=== PATIENT | female | born 1945 | race Caucasian/White ===

== ENCOUNTER → 2016-11-14 | Outpatient (CLI) | payer BC ==
[~2016-11-14] MED LIST: ASPEC81 PO; CLX/20 PO; LEVE500T PO; PROB1TAB16 PO; RXC5 PO
--- NOTE | 2016-11-14 14:13 | DIAGNOSTIC IMAGING REPORT ---
CAROTID ARTERY ULTRASOUND CLINICAL HISTORY: AMAUROSIS FUGAX COMPARISON STUDY: None. TECHNIQUE: Real-time, grayscale, and color Doppler sonography of the carotid and vertebral arteries was performed. Images were viewed in the transverse and longitudinal planes. FINDINGS: There is mild atherosclerotic plaque. Velocity measurements are listed below. COMMON CAROTID PEAK SYSTOLIC VELOCITY (CM/S): RIGHT 74 LEFT 84 ICA PEAK SYSTOLIC VELOCITY (CM/S): RIGHT 70 LEFT 77 The systolic ratios between the internal to common carotid arteries are normal. Antegrade flow is seen in the vertebral arteries. The external carotid arteries are patent. Blood pressure in the right arm measured 167/73. Blood pressure in the left arm measured 165/76. IMPRESSION: 1. No evidence of a hemodynamically significant stenosis. 2. Mild atherosclerotic plaque within the bilateral common carotid and internal carotid arteries. Electronically signed by: Mp Prather M.D. 11/14/2016 2:12 PM Dictated Date/Time: 11/14/2016 2:10 PM
== END | disposition home or self-care (01) ==
LOC: C.ULTR 13:05
PROVIDERS: ATTEND Psychiatry & Neurology Neurology
DX: G45.3 Amaurosis fugax (principal); G40.909 Epilepsy, unspecified, not intractable, without status epilepticus

== ENCOUNTER → 2016-11-14 | Outpatient (CLI) | payer BC ==
--- NOTE | 2016-11-14 15:35 | DIAGNOSTIC IMAGING REPORT ---
TWO VIEW CHEST AND RIGHT-SIDED RIB SERIES CLINICAL HISTORY: Atypical chest pain. Right-sided chest wall pain. FINDINGS: PA and lateral chest radiographs with 5 additional views may right-sided rib series are compared to study dated 05/02/2015 and rib series dated 05/03/2015. The heart is enlarged and there is atherosclerotic calcification of the thoracic aorta. The pulmonary vasculature is noncongested. Chronic interstitial thickening is unchanged. No airspace consolidation or pleural effusion is identified. Apical scarring is observed. There is no pneumothorax. The skeletal structures are osteopenic. There are age indeterminant but suspected acute minimally depressed right 4th through 7th anterolateral rib fractures. These are new from the 05/03/2015 examination. A mild and age indeterminant compression deformity is noted in the midthoracic spine. The remainder of the bony thorax appears intact. Degenerative change and hyperkyphosis are noted in the thoracic spine. IMPRESSION: 1. Cardiomegaly with no acute cardiopulmonary abnormality. 2. Age indeterminant but suspected acute and minimally depressed right 4th through 7th anterolateral rib fractures as above. Correlate for point tenderness at this site. 3. There is no pneumothorax Electronically signed by: Jeff Villalobos M.D. 11/14/2016 3:34 PM Dictated Date/Time: 11/14/2016 3:28 PM
== END | disposition home or self-care (01) ==
LOC: C.RADBC 14:34
PROVIDERS: ATTEND Family Medicine
DX: G40.909 Epilepsy, unspecified, not intractable, without status epilepticus (principal)

== ENCOUNTER → 2017-04-18 | Outpatient (CLI) | payer BC ==
--- NOTE | 2017-04-18 14:46 | DIAGNOSTIC IMAGING REPORT ---
C-SPINE ROUTINE 4 OR 5 VIEWS CLINICAL HISTORY: Neck pain following recent fall. COMPARISON STUDY: Cervical spine CT May 02, 2015. FINDINGS: Alignment of the cervical spine is anatomic. No acute fracture is identified. Arthritis at the C1- C2 articulation is noted. Multilevel bony neural foraminal stenosis is present. IMPRESSION: 1. No acute cervical spine fracture or subluxation. 2. Mild to moderate multilevel degenerative disc disease and facet arthrosis of the cervical spine. Electronically signed by: Mp Prather M.D. 04/18/2017 2:44 PM Dictated Date/Time: 04/18/2017 2:43 PM
--- NOTE | 2017-04-18 14:47 | DIAGNOSTIC IMAGING REPORT ---
LEFT SHOULDER MIN 2 VIEWS ROUTINE CLINICAL HISTORY: LEFT SHOULDER PAIN AFTER SEIZURE COMPARISON: None FINDINGS: Alignment of the left acromioclavicular and glenohumeral joints is anatomic. There is no acute fracture. Mild arthritis of the left acromioclavicular joint is noted. IMPRESSION: 1. No acute fracture or dislocation of the left shoulder. 2. Mild osteoarthritis of the left acromioclavicular joint. Electronically signed by: Mp Prather M.D. 04/18/2017 2:46 PM Dictated Date/Time: 04/18/2017 2:45 PM
--- NOTE | 2017-04-18 14:49 | DIAGNOSTIC IMAGING REPORT ---
L-SPINE MIN 4 VIEWS ROUTINE CLINICAL HISTORY: Low back pain. Recent fall. COMPARISON: None FINDINGS: There is slight retrolisthesis of L1 on L2. There is mild loss of height of the superior plate of L1. This is probably chronic. There is marked disc space narrowing with vacuum disc phenomenon at L5-S1. No acute lumbar spine fracture is identified. Several old right-sided rib fractures are noted. IMPRESSION: 1. Mild loss of height of the superior endplate of L1. Although age indeterminate, this is likely chronic. 2. Moderate degenerative disc disease at L5-S1. Otherwise, mild multilevel degenerative changes of the lumbar spine. Electronically signed by: Mp Prather M.D. 04/18/2017 2:47 PM Dictated Date/Time: 04/18/2017 2:46 PM
== END | disposition home or self-care (01) ==
LOC: C.RAD 13:56
PROVIDERS: ATTEND Family Medicine
DX: M54.2 Cervicalgia (principal); M54.5 Low back pain; M25.512 Pain in left shoulder

== ENCOUNTER → 2017-07-16 | Outpatient (CLI) | payer BC ==
[~2017-07-16] MED LIST changes: +GADAVIST IV PRN
--- NOTE | 2017-07-16 15:17 | DIAGNOSTIC IMAGING REPORT ---
Brain MRI WITH AND WITHOUT CONTRAST HISTORY: Seizures.. R56.9 TECHNIQUE: Multiplanar multisequence MRI of the brain was performed both before and after the intravenous administration of contrast. COMPARISON STUDY: Head CT 05/02/2015. FINDINGS: There is no mass, hematoma, midline shift, or acute infarct. The paranasal sinuses are clear. The mastoid air cells are clear. The ventricles and sulci demonstrate mild age-related involutional changes. Scattered foci of T2 hyperintensity seen within the periventricular and subcortical white matter are nonspecific but suggestive of mild microvascular ischemic changes. The major vascular flow voids at the skull base are well-maintained. No abnormal enhancement. IMPRESSION: No acute intracranial abnormality. Scattered foci of T2 hyperintensity seen within the periventricular and subcortical white matter are nonspecific but favor microvascular ischemic change. Electronically signed by: David Rico M.D. 07/16/2017 3:16 PM Dictated Date/Time: 07/16/2017 3:08 PM
== END | disposition home or self-care (01) ==
PROVIDERS: ATTEND Psychiatry & Neurology Neurology
DX: R56.9 Unspecified convulsions (principal)

== ENCOUNTER 2024-12-28 18:44 | Observation (INO) ==
[2024-12-28] MEDS: SENNA 8.6 MG TAB PO STA (21:57)
[2024-12-28] MEDS: ACETAMINOPHEN 500 MG TAB PO STA (21:57)
--- NOTE | 2024-12-28 22:29 | XRay Report ---
Exam(s): XR RIGHT WRIST, 3+ views EXAM: XR Right Wrist Complete, 3 or More Views CLINICAL HISTORY: Reason for exam: right wrist injury. TECHNIQUE: Frontal, lateral and oblique views of the right wrist. COMPARISON: No relevant prior studies available. FINDINGS: Bones/joints: Acute impacted, mildly displaced intra-articular distal radius fracture with 60° dorsal angulation of the distal fragment. No visible ulnar fracture. No dislocation. Soft tissues: Soft tissue swelling. No radiopaque foreign body. IMPRESSION: Acute impacted, mildly displaced intra-articular distal radius fracture with 60° dorsal angulation of the distal fragment. Electronically signed by: Mila Benavides M.D. 12/28/24 22:28 PM
--- NOTE | 2024-12-28 22:47 | XRay Report ---
Exam(s): XR SHOULDER, 2+ views EXAM: XR Right Shoulder Complete, 2 or More Views CLINICAL HISTORY: Reason for exam: right shoulder injury. TECHNIQUE: Two or more views of the right shoulder. COMPARISON: No relevant prior studies available. FINDINGS: Bones/joints: Mild osteoarthritis of the acromioclavicular joint. No acute fracture or dislocation. Multiple old right rib fractures. Spondylosis in the thoracic spine. Soft tissues: Unremarkable. IMPRESSION: No acute findings in the right shoulder. Electronically signed by: Mial Benavides M.D. 12/28/24 22:46 PM
--- NOTE | 2024-12-28 22:48 | CT Scan Report ---
Exam(s): CT HEAD Without Contrast EXAM: CT Head Without Intravenous Contrast CLINICAL HISTORY: Reason for exam: head injury. TECHNIQUE: Axial computed tomography images of the head/brain without intravenous contrast. CTDI is 39.02 mGy and DLP is 624.41 mGy-cm. Automated exposure control was utilized for the study. A dose lowering technique was utilized adhering to the principles of ALARA. COMPARISON: 06/05/24 FINDINGS: Brain: Age-related parenchymal volume loss. Mild to moderate chronic small vessel ischemic change. Landeros-white matter differentiation maintained. No hemorrhage, mass effect, parenchymal edema, or midline shift. Ventricles: No hydrocephalus. Bones/joints: No acute fracture. Soft tissues: Unremarkable. Vasculature: Intracranial atherosclerosis. Sinuses: Unremarkable as visualized. Mastoid air cells: No significant mastoid effusion. IMPRESSION: No acute intracranial process. Electronically signed by: Mila Benavides M.D. 12/28/24 22:47 PM
--- NOTE | 2024-12-28 22:57 | CT Scan Report ---
Exam(s): CT C SPINE EXAM: CT Cervical Spine Without Intravenous Contrast CLINICAL HISTORY: Reason for exam: head injury. TECHNIQUE: Axial computed tomography images of the cervical spine without intravenous contrast. CTDI is 25.68 mGy and DLP is 459.38 mGy-cm. Automated exposure control was utilized for the study. A dose lowering technique was utilized adhering to the principles of ALARA. COMPARISON: 05/27/23 FINDINGS: Vertebrae: Osteopenia. Fracture through the right lamina of C6 (sagittal 44), new from prior. There is 3 mm anterolisthesis of C6 on C7 which is new from prior exam and may reflect an acute posttraumatic finding. Stable chronic fracture through the left lamina of C5. Fracture through the right transverse process of C7 (coronal 68) which is new from prior but chronic in appearance. No additional fractures. Discs/spinal canal/neural foramina: Advanced degeneration at the atlantodental joint. Mild disc degeneration at multiple cervical levels. Multilevel bilateral facet joint degeneration. Mid and lower cervical uncovertebral joint degeneration. No significant central spinal canal stenosis. Soft tissues: Unremarkable. IMPRESSION: Fracture through the right lamina of C6 (sagittal 44), new from prior and possibly acute. There is 3 mm anterolisthesis of C6 on C7 which is new from prior exam and suggests a posttraumatic finding. Fracture through the right transverse process of C7, new from prior but chronic in appearance. Electronically signed by: Mila Benavides M.D. 12/28/24 22:56 PM
[2024-12-28] MEDS: LORazepam 2 MG/1 ML VIAL IM STA (23:34)
--- NOTE | 2024-12-29 00:49 | History & Physical Report ---
Date of Service December 29, 2024 Assessment & Plan (1) Ambulatory dysfunction: (2) Fracture of right wrist: (3) Cervical spine fracture: Plan 79-year-old female PMHx Alzheimer's dementia, seizure disorder, and chronic venous insufficiency presenting with for fall on the day prior to admission. ED evaluation reveals no leukocytosis, slightly decreased H/H at 11.7/33.8; CMP BUN 27, ratio 35.5, glucose 101; UA without infection; Cervical spine CT fracture through R lamina of C8 and 3 mm anterolisthesis of C6 on C7, fracture through right transverse process of C7; head CT with no acute findings; shoulder x-ray with no acute findings; wrist x-ray with acute impacted mildly d isplaced intra-articular distal radius fracture with 60 degree angulation (dorsal) of distal fragment. #Ambulatory dysfunction With recurrent falls and advanced Alzheimer's dementia. Patient's concern for patient's safety while at home, interested in discussing placement options. - PT/OT ordered, appreciate assistance - Case management consulted #Fall/R Radius fx/C spine fx's Patient with multiple falls occurring throughout the week, appears to just lose balance and fall over. Landed on L side ~ 5 days [employer], and R wrist on fall day of arrival. Suspect all mechanical in nature. - CBC without leukocytosis, slightly decreased H/H; CMP elevated BUN + ratio; UA w/o infection - Iron studies pending - CT head with no acute findings - C-spine CT with C8 fracture, anterior listhesis of C6 on C7, and C7 transverse process fracture - Will monitor on tele if patient allows to ensure no arrhythmias leading to falls - Case discussed with ED provider and ortho/spine sx providers- no surgical interventions at this time; encourage C spine collar as patient allows, R wrist splinted - Pain management - on [place] at home, may continue - Fall precautions #Agitation Some agitation at baseline, utilizes Haldol outpatient. Utilized Ativan in ED x 1. - UA w/o infection - Redirect as able + increase familiarity of setting + decrease restraints + remove lines if possible + promote good sleep (melatonin) Dispo: Admit, med/telemetry VTE prophylaxis: SCDs - consider chemical prophylaxis if prolong stay but DEFERRED at admission d/t falls This document was dictated utilizing [employer]. Please excuse any grammatical errors that may be secondary to use of this software. Admission and Anticipated Discharge Date Admission Date: 12/29/2024 History of Present Illness Chief Complaint: Fall Primary Care Provider: Carolyn Pemberton DO 79-year-old female PMHx Alzheimer's dementia, seizure disorder, and chronic venous insufficiency presenting with for fall on the day prior to admission. helps provide a history. Patient's states that he witnessed her leaning and then she fell to the ground landing on her right wrist. States that this is not the first fall and that she has had a previous fall earlier in the week making that a total of 2 falls over the past week. Approximately 5 days [employer] she had a fall landing on her left side which bruised her face. She is complaining of some right shoulder pain to the . She has not had no infectious symptoms. ED evaluation reveals no leukocytosis, slightly decreased H/H at 11.7/33.8; CMP BUN 27, ratio 35.5, glucose 101; UA without infection; Cervical spine CT fracture through R lamina of C8 and 3 mm anterolisthesis of C6 on C7, fracture through right transverse process of C7; head CT with no acute findings; shoulder x-ray with no acute findings; wrist x- ray with acute impacted mildly displaced intra-articular distal radius fracture with 60 degree angulation (dorsal) of distal fragment. Please see Dr. Garcia's attestation for adjustments/additions to treatment plan. Allergies Allergy/AdvReac Type Severity Reaction Status Date / Time raloxifene [From Evista] Allergy Intermediate swelling Verified 12/28/24 21:37 levetiracetam [From Keppra] AdvReac Intermediate depression Verified 12/28/24 21:37 morphine AdvReac Unknown Unknown Verified 12/28/24 21:37 Home Medications Medication Instructions Recorded Confirmed Type CBD oil 1 dose PO DIRECTED PRN NEEDED 10/13/24 12/28/24 History Abh Gel 1 dose PO Q4H PRN 12/28/24 12/28/24 History RESTLESSNESS/AGITATION haloperidol lactate 2 mg/mL oral 1 mg Q6 12/28/24 12/28/24 History concentrate hydrocodone 5 mg-acetaminophen 325 1 tab PO Q4H PRN Pain 12/28/24 12/28/24 History mg tablet sennosides 8.6 mg tablet (senna) 17.2 mg PO BID 12/28/24 12/28/24 History Past Med/Surg History Problem List Cervical spine fracture Ambulatory dysfunction Fracture of right wrist (Acute) Alzheimer dementia Chronic venous insufficiency Depression (Chronic) Seizure disorder (Chronic) Contusion of rib on right side (Acute) Seizures (Acute) Medical History Epilepsy Toe swelling Varicose veins of both lower extremities Vitamin D deficiency Thoracic compression fracture Poor balance Osteoporosis Memory change Intertrigo Hemorrhoids Colon polyps Arrhythmia Surgical History S/P tonsillectomy S/P hemorrhoidectomy S/P colonoscopy Family History Father Colon cancer Mother Myocardial infarction Hypertension Social History Smoking Status: Unknown if ever smoked Hx Alcohol Use: No Hx Substance Use: No Preferred Language: Vietnamese Communication Ability: Unable Pill Packer Required: No marital status: Current Living Situation: Spouse current occupational status: retired Feels Safe at Home: Yes Physical Activity Frequency: Does not Exercise Assistive Devices: Hospital Bed and Walker Review of Systems Review of Systems: All systems reviewed & are unremarkable except as noted in Subjective Physical Exam Physical Exam: General: No acute distress Skin: Warm and dry Head: Normocephalic, atraumatic Eyes: PERRL, conjunctivae clear, sclera non-icteric ENT: External ear and ear canal without swelling; nose atraumatic; good dentition, tongue normal appearance, pharynx normal Neck: Supple, no LAD Cardio: RRR, no M/G/R, S1 and S2 normal Resp: No respiratory distress, Lungs CTA in all lobes bilaterally, no wheezes, rales, or rhonchi Abdomen: Soft, symmetric, nontender; No masses or hepatosplenomegaly; Bowel sounds normoactive MSK: No deformities; pulses palpable and equal; no edema. Neuro: Awake, alert; Sensation intact bilaterally; CN grossly intact Psych: Appropriate mood and affect; good judgement and insight. Results & Data Results & Data Vital Signs (Past 12 Hours) Vital Signs Temp Pulse Pulse Resp BP BP Pulse Ox 12/28/24 20:58 84 12/28/24 19:10 36.6 C 73 19 161/85 H 98 12/28/24 19:10 36.6 C 73 20 161/85 H 97 O2 Del Method 12/28/24 20:58 12/28/24 19:10 Room Air 12/28/24 19:10 Room Air Diagnostic Findings Cervical Spine CT 12/28/24 19:54 Exam(s): CT C SPINE EXAM: CT Cervical Spine Without Intravenous Contrast CLINICAL HISTORY: Reason for exam: head injury. TECHNIQUE: Axial computed tomography images of the cervical spine without intravenous contrast. CTDI is 25.68 mGy and DLP is 459.38 mGy-cm. Automated exposure control was utilized for the study. A dose lowering technique was utilized adhering to the principles of ALARA. COMPARISON: 05/27/23 FINDINGS: Vertebrae: Osteopenia. Fracture through the right lamina of C6 (sagittal 44), new from prior. There is 3 mm anterolisthesis of C6 on C7 which is new from prior exam and may reflect an acute posttraumatic finding. Stable chronic fracture through the left lamina of C5. Fracture through the right transverse process of C7 (coronal 68) which is new from prior but chronic in appearance. No additional fractures. Discs/spinal canal/neural foramina: Advanced degeneration at the atlantodental joint. Mild disc degeneration at multiple cervical levels. Multilevel bilateral facet joint degeneration. Mid and lower cervical uncovertebral joint degeneration. No significant central spinal canal stenosis. Soft tissues: Unremarkable. IMPRESSION: Fracture through the right lamina of C6 (sagittal 44), new from prior and possibly acute. There is 3 mm anterolisthesis of C6 on C7 which is new from prior exam and suggests a posttraumatic finding. Fracture through the right transverse process of C7, new from prior but chronic in appearance. Electronically signed by: Mila Benavides M.D. 12/28/24 22:[address] 12/28/24 19:54 Exam(s): CT HEAD Without Contrast EXAM: CT Head Without Intravenous Contrast CLINICAL HISTORY: Reason for exam: head injury. TECHNIQUE: Axial computed tomography images of the head/brain without intravenous contrast. CTDI is 39.02 mGy and DLP is 624.41 mGy-cm. Automated exposure control was utilized for the study. A dose lowering technique was utilized adhering to the principles of ALARA. COMPARISON: 06/05/24 FINDINGS: Brain: Age-related parenchymal volume loss. Mild to moderate chronic small vessel ischemic change. Landeros-white matter differentiation maintained. No hemorrhage, mass effect, parenchymal edema, or midline shift. Ventricles: No hydrocephalus. Bones/joints: No acute fracture. Soft tissues: Unremarkable. Vasculature: Intracranial atherosclerosis. Sinuses: Unremarkable as visualized. Mastoid air cells: No significant mastoid effusion. IMPRESSION: No acute intracranial process. Electronically signed by: Mila Benavides M.D. 12/28/24 22:47 PM Shoulder X-Ray 12/28/24 19:54 Exam(s): XR SHOULDER, 2+ views EXAM: XR Right Shoulder Complete, 2 or More Views CLINICAL HISTORY: Reason for exam: right shoulder injury. TECHNIQUE: Two or more views of the right shoulder. COMPARISON: No relevant prior studies available. FINDINGS: Bones/joints: Mild osteoarthritis of the acromioclavicular joint. No acute fracture or dislocation. Multiple old right rib fractures. Spondylosis in the thoracic spine. Soft tissues: Unremarkable. IMPRESSION: No acute findings in the right shoulder. Electronically signed by: Mila Benavides M.D. 12/28/24 22:46 PM Wrist X-Ray 12/28/24 19:54 Exam(s): XR RIGHT WRIST, 3+ views EXAM: XR Right Wrist Complete, 3 or More Views CLINICAL HISTORY: Reason for exam: right wrist injury. TECHNIQUE: Frontal, lateral and oblique views of the right wrist. COMPARISON: No relevant prior studies available. FINDINGS: Bones/joints: Acute impacted, mildly displaced intra-articular distal radius fracture with 60° dorsal angulation of the distal fragment. No visible ulnar fracture. No dislocation. Soft tissues: Soft tissue swelling. No radiopaque foreign body. IMPRESSION: Acute impacted, mildly displaced intra-articular distal radius fracture with 60° dorsal angulation of the distal fragment. Electronically signed by: Mila Benavides M.D. 12/28/24 22:28 PM Medications Administered Sennosides 8.6 mg p.o. Lorazepam 1 mg IM Haloperidol 5 megs IM Acetaminophen 1g p.o. Supervising Physician Co-Signing Physician Notes I personally saw and examined the patient. I independently reviewed the labs, imaging, problem list, medication list, past medical history and family history. I verified all schmitt points and agree with Pelon Bahena PA-C with the following exceptions and/or additions: 79 year old presents to the ER with fall. Patient with dementia and no available family members at bedside for collateral history at time of assessment. O/E Alert but disorientated x3, HS RRR, no murmurs, Chest CTAB, right wrist in splint A/P #Fall/R Radius fx/C spine fx's - consult ortho, consult ortho spine (patient unable to tolerate cervical collar), PT/OT, likely need for placement PG Care Time/CCT Total # of Minutes Spent Total Time Spent with Patient: Total time spent is greater than 50% in coordination of care (as documented) at patient's floor/unit and/or counseling patient: Coding Level of Care Code 55482 INT INP/OBS CARE 3/75MIN Diagnoses Ambulatory dysfunction R26.2 Fracture of right wrist S62.101A Encounter type: initial encounter Fracture type: closed Cervical spine fracture S12.9XXA (2) Fracture of right wrist Encounter type: initial encounter Fracture type: closed Qualified Code(s): S62.101A - Fracture of unspecified carpal bone, right wrist, initial encounter for closed fracture
[2024-12-29] MEDS: HALOPERIDOL LACTATE 5 MG/ML 1 ML VIAL IM STA (01:29)
[2024-12-29] MEDS ORDERED: POLYETHYLENE (MIRALAX) 17 GM PACK PO PRN (01:41)
--- NOTE | 2024-12-29 01:46 | Emergency Department Note ---
ED Provider Note History of Present Illness Chief Complaint: Fall Stated Complaint: FALL, R WRIST DEFORMITY Time Seen by Provider: 12/28/24 19:46 Source: family Mode of arrival: ambulatory Limitations: other (Dementia) This patient is a 79-year-old female with past medical history of Alzheimer's dementia who presents accompanied by her for evaluation of a fall. He states that she fell this evening. She was walking and seemed to lose her balance and fell, injuring the right wrist. He does note that she had another fall about 5 days ago and at that time hit her face off of the door frame. She has some bruising around the left eye due to this. She does not take any anticoagulants. He states that since the first fall, she seems to have been moving the right arm less than usual. Home Medications Medication Instructions Recorded Confirmed Type CBD oil 1 dose PO DIRECTED PRN NEEDED 10/13/24 12/28/24 History Abh Gel 1 dose PO Q4H PRN 12/28/24 12/28/24 History RESTLESSNESS/AGITATION haloperidol lactate 2 mg/mL oral 1 mg Q6 12/28/24 12/28/24 History concentrate hydrocodone 5 mg-acetaminophen 325 1 tab PO Q4H PRN Pain 12/28/24 12/28/24 History mg tablet sennosides 8.6 mg tablet (senna) 17.2 mg PO BID 12/28/24 12/28/24 History Allergies Allergy/AdvReac Type Severity Reaction Status Date / Time raloxifene [From Evista] Allergy Intermediate swelling Verified 12/28/24 21:37 levetiracetam [From Keppra] AdvReac Intermediate depression Verified 12/28/24 21:37 morphine AdvReac Unknown Unknown Verified 12/28/24 21:37 Past Med/Surg History Problem List Cervical spine fracture Ambulatory dysfunction Fracture of right wrist (Acute) Alzheimer dementia Chronic venous insufficiency Depression (Chronic) Seizure disorder (Chronic) Contusion of rib on right side (Acute) Seizures (Acute) Medical History Epilepsy Toe swelling Varicose veins of both lower extremities Vitamin D deficiency Thoracic compression fracture Poor balance Osteoporosis Memory change Intertrigo Hemorrhoids Colon polyps Arrhythmia Surgical History S/P tonsillectomy S/P hemorrhoidectomy S/P colonoscopy Family History Father Colon cancer Mother Myocardial infarction Hypertension Social History Smoking Status: Unknown if ever smoked Hx Alcohol Use: Yes Alcohol type: wine Alcohol Intake Frequency Comment: daily Hx Substance Use: No Preferred Language: Arabic marital status: Current Living Situation: Spouse current occupational status: retired Feels Safe at Home: Yes Physical Activity Frequency: Does not Exercise Physical Exam Vital Signs Vital Signs - 24 hr 12/28/24 19:10 12/28/24 19:10 12/28/24 20:58 Temperature 36.6 C 36.6 C Temperature Source Oral Oral Pulse Rate 73 84 Pulse Rate [Left Finger] 73 Pulse Rhythm Regular Pulse Rhythm [Left Finger] Regular Pulse Strength Normal Pulse Strength [Left Finger] Normal Respiratory Rate 20 19 Respiratory Effort / Characteristics Non-Labored Spontaneous Non-Labored Spontaneous Respiratory Depth Normal Normal Respiratory Pattern Regular Regular Blood Pressure 161/85 H Blood Pressure [Left Arm] 161/85 H Blood Pressure Mean 110 Blood Pressure Mean [Left Arm] 110 Blood Pressure Position Lying Blood Pressure Position [Left Arm] Lying Pulse Oximetry 97 98 Oxygen Delivery Method Room Air Room Air Sepsis Recent Fever Within 48 Hours No Sepsis New/Unexplained Change in Mental Status No Sepsis Action Taken by Nursing No Action Required VITALS: Vitals are noted on the nurse's note and reviewed by myself. GENERAL: This is a 79-year-old female, in no acute distress. SKIN: The skin was without rashes, erythema, edema, or bruising. HEAD: Normocephalic atraumatic. EARS: External auditory canals clear, tympanic membranes pearly landeros without erythema or effusion bilaterally. EYES: Pupils equal round and reactive to light and accommodation. MOUTH: Mucous membranes moist. NECK: Supple without nuchal rigidity. Cervical spine is nontender. HEART: Regular rate and rhythm without murmurs gallops or rubs. LUNGS: Clear to auscultation bilaterally without wheezes, rales or rhonchi. ABDOMEN: Positive bowel sounds x 4. Soft, nontender. MUSCULOSKELETAL: Dorsal swelling/deformity of the right wrist, tenderness over the dorsal right wrist. NEURO: Patient was oriented to person only. Course Administered Medications Discontinued Medications Acetaminophen (Acetaminophen 500 Mg Tab) 1,000 mg PO NOW STA Stop: 12/28/24 21:43 Last Admin: 12/28/24 21:57 Dose: 1,000 mg Documented By: UDAY Haloperidol Lactate (Haloperidol Lactate 5 Mg/Ml 1 Ml Vial) 5 mg IM NOW STA Stop: 12/28/24 23:47 Last Admin: 12/29/24 01:29 Dose: 5 mg Documented By: KADIE Lorazepam (Lorazepam 2 Mg/1 Ml Vial) 1 mg IM NOW STA Stop: 12/28/24 23:23 Last Admin: 12/28/24 23:34 Dose: 1 mg Documented By: UDAY Sennosides (Senna 8.6 Mg Tab) 8.6 mg PO NOW STA Stop: 12/28/24 21:43 Last Admin: 12/28/24 21:57 Dose: 8.6 mg Documented By: UDAY Medical Decision Making Differential Diagnosis Fracture, subluxation, dislocation, contusion, ligamentous injury, neurovascular, compartment syndrome, rhabdomyolysis, as well as other pathologies. Imaging Data Attestation: I personally reviewed and interpreted this imaging study as fo llows: Radiologist's Impression: Cervical Spine CT 12/28/24 19:54 Exam(s): CT C SPINE EXAM: CT Cervical Spine Without Intravenous Contrast CLINICAL HISTORY: Reason for exam: head injury. TECHNIQUE: Axial computed tomography images of the cervical spine without intravenous contrast. CTDI is 25.68 mGy and DLP is 459.38 mGy-cm. Automated exposure control was utilized for the study. A dose lowering technique was utilized adhering to the principles of ALARA. COMPARISON: 05/27/23 FINDINGS: Vertebrae: Osteopenia. Fracture through the right lamina of C6 (sagittal 44), new from prior. There is 3 mm anterolisthesis of C6 on C7 which is new from prior exam and may reflect an acute posttraumatic finding. Stable chronic fracture through the left lamina of C5. Fracture through the right transverse process of C7 (coronal 68) which is new from prior but chronic in appearance. No additional fractures. Discs/spinal canal/neural foramina: Advanced degeneration at the atlantodental joint. Mild disc degeneration at multiple cervical levels. Multilevel bilateral facet joint degeneration. Mid and lower cervical uncovertebral joint degeneration. No significant central spinal canal stenosis. Soft tissues: Unremarkable. IMPRESSION: Fracture through the right lamina of C6 (sagittal 44), new from prior and possibly acute. There is 3 mm anterolisthesis of C6 on C7 which is new from prior exam and suggests a posttraumatic finding. Fracture through the right transverse process of C7, new from prior but chronic in appearance. Electronically signed by: Mila Benavides M.D. 12/28/24 22:[address] 12/28/24 19:54 Exam(s): CT HEAD Without Contrast EXAM: CT Head Without Intravenous Contrast CLINICAL HISTORY: Reason for exam: head injury. TECHNIQUE: Axial computed tomography images of the head/brain without intravenous contrast. CTDI is 39.02 mGy and DLP is 624.41 mGy-cm. Automated exposure control was utilized for the study. A dose lowering technique was utilized adhering to the principles of ALARA. COMPARISON: 06/05/24 FINDINGS: Brain: Age-related parenchymal volume loss. Mild to moderate chronic small vessel ischemic change. Landeros-white matter differentiation maintained. No hemorrhage, mass effect, parenchymal edema, or midline shift. Ventricles: No hydrocephalus. Bones/joints: No acute fracture. Soft tissues: Unremarkable. Vasculature: Intracranial atherosclerosis. Sinuses: Unremarkable as visualized. Mastoid air cells: No significant mastoid effusion. IMPRESSION: No acute intracranial process. Electronically signed by: Mila Benavides M.D. 12/28/24 22:47 PM Shoulder X-Ray 12/28/24 19:54 Exam(s): XR SHOULDER, 2+ views EXAM: XR Right Shoulder Complete, 2 or More Views CLINICAL HISTORY: Reason for exam: right shoulder injury. TECHNIQUE: Two or more views of the right shoulder. COMPARISON: No relevant prior studies available. FINDINGS: Bones/joints: Mild osteoarthritis of the acromioclavicular joint. No acute fracture or dislocation. Multiple old right rib fractures. Spondylosis in the thoracic spine. Soft tissues: Unremarkable. IMPRESSION: No acute findings in the right shoulder. Electronically signed by: Mila Benavides M.D. 12/28/24 22:46 PM Wrist X-Ray 12/28/24 19:54 Exam(s): XR RIGHT WRIST, 3+ views EXAM: XR Right Wrist Complete, 3 or More Views CLINICAL HISTORY: Reason for exam: right wrist injury. TECHNIQUE: Frontal, lateral and oblique views of the right wrist. COMPARISON: No relevant prior studies available. FINDINGS: Bones/joints: Acute impacted, mildly displaced intra-articular distal radius fracture with 60° dorsal angulation of the distal fragment. No visible ulnar fracture. No dislocation. Soft tissues: Soft tissue swelling. No radiopaque foreign body. IMPRESSION: Acute impacted, mildly displaced intra-articular distal radius fracture with 60° dorsal angulation of the distal fragment. Electronically signed by: Mila Benavides M.D. 12/28/24 22:28 PM MDM Narrative This patient is a 79-year-old female who presents to the emergency department for evaluation of 2 recent falls. Patient primarily complaining of pain in the right wrist. She does have a swelling/deformity there. X-rays obtained show an impacted mildly displaced distal radius fracture with some dorsal angulation of the distal fragment. I did speak with Dr. Porras of orthopedics regarding this and he did not feel that emergent reduction was warranted. Patient was placed in an Ortho-Glass splint and I was able to apply some pressure to help reduce the fracture during splinting. Given patient's recent fall and facial contusions, CT of the head and cervical spine were also performed. Patient was found to have fractures of the right lamina of C6 and right transverse process fracture of C7. Unclear whether these are new. There is some mild anterolisthesis of C6 on C7. I did speak with Dr. Rich regarding this and he states that we can attempt a cervical collar (patient took this off immediately) but no other emergent treatment is warranted. I do think patient would benefit from admission and possible placement in a nursing facility. Patient's was agreeable with this. [facility], who agreed to evaluate the patient for further care. Impression Fracture of right wrist Discharge Plan Visit Data Chief Complaint: Fall Stated Complaint: FALL, R WRIST DEFORMITY ED Provider: Jose Rafael [facility] ED Midlevel Provider: Cheri Beltran Discharge Problem: Fracture of right wrist Patient Disposition: Home - Self-Care Condition: Good Discharge Problem: Fracture of right wrist Qualifiers: Encounter type: initial encounter Fracture type: closed Qualified Code(s): S62.101A - Fracture of unspecified carpal bone, right wrist, initial encounter for closed fracture
[2024-12-29 02:12] LABS: Appearance Urine Clear (Clear); Bacteria Urine Automated None Seen (None Seen); Bilirubin Urine Negative (Negative); Blood Urine Trace (Negative); Cast Urine Automated 0-2 /lpf (0-2); Color Urine Yellow; Epithelial Cell Urine Auto 0-2 /hpf (0-2); Glucose Urine UA Negative (Negative); Ketones Urine Negative (Negative); Leukocyte Esterase Urine Negative (Negative); Nitrite Urine Negative (Negative); Protein Urine Negative (Negative); RBC Urine Automated 0-2 /hpf (0-2); Specific Gravity Urine 1.009 (1.000-1.030); Urobilinogen Urine Negative (Negative); WBC Urine Automated 0-5 /hpf (0-5); pH Urine 7.5 (4.5-7.5)
[2024-12-29 02:19] LABS: Basophils # (auto) 0.04 K/uL (0.00-0.20); Basophils % (auto) 0.4 %; Eosinophils # (auto) 0.02 K/uL (0.00-0.50); Eosinophils % (auto) 0.2 %; Hematocrit (blood only) 33.8 % (37.0-47.0); Hemoglobin 11.7 g/dl (12.0-16.0); Immature Granulocytes # (auto) 0.03 K/uL (0.01-0.20); Immature Granulocytes % (auto) 0.3 %; Lymphocytes # (auto) 1.82 K/uL (1.20-3.40); Lymphocytes % (auto) 19.5 %; Mean Corpuscular Hemoglobin 31.5 pg (25.0-34.0); Mean Corpuscular Hgb Conc 34.6 g/dL (32.0-36.0); Mean Corpuscular Volume 91.1 fL (80.0-100.0); Mean Platelet Volume 8.3 fL (9.4-12.4); Monocytes # (auto) 1.03 K/uL (0.11-0.59); Neutrophils # (auto) 6.39 K/uL (1.40-6.50); Neutrophils % (auto) 68.6 %; Platelet Count 314 K/uL (130-400); RDW Coefficient of Variation 14.9 % (11.5-14.5); RDW Standard Deviation 49.7 fL (36.4-46.3); Red Blood Count 3.71 M/uL (4.20-5.40); White Blood Count 9.33 K/ul (4.8-10.8)
[2024-12-29 02:28] LABS: Albumin Globulin Ratio 1.6 (0.9-2); Albumin Level 3.9 gm/dl (3.4-5.0); BUN Creatinine Ratio 35.5 (10-20); Bilirubin,Total 0.7 mg/dl (0.2-1.0); Calcium 9.1 mg/dl (8.6-10.3); Creatinine Clr Calc Pharmacy 56.1 ml/min; Globulin 2.4 gm/dl (2.5-4.0); Potassium 3.9 mmol/L (3.5-5.1); Total Protein 6.3 gm/dl (6.0-8.3)
[2024-12-29 04:04] LABS: Ferritin 109.5 ng/ml (8-388)
[2024-12-29 05:14] LABS: Folate (Folic Acid),Ser orPlas 16.49 ng/ml (>5.38)
[2024-12-29] MEDS: HALOPERIDOL ORAL SOLN 2 MG/ML PO SCH (06:14)
--- OUTSIDE RECORDS SUMMARY | 2024-12-29 08:12 | External Medical Summary | Summary of Care ---
Author Name Unknown Organization [facility] Address [address] [place] [facility] [place] [address] Phone [phone] Care Team Providers Care Flipping Machine Operator Name Role Phone Carolyn Pemberton Primary Care Provider Reason for Visit * Reason Onset Date Comments Order Request 12/20/2024 Encounter Details Date Type Department Care Team (Late st Contact Info) Description 12/20/2024 Telephone Rheumatology [facility] [address] [place] [address] [facility] [address] [facility] [address] Order Request Allergies Active Allergy Reactions Criticality Noted Date Comments Raloxifene Edema Other 2015 Raloxifene 07/09/2016 Levetiracetam 07/02/2022 Other reaction(s): depression Morphine 07/09/2016 Peanut-Containing Drug Products 02/10/2024 documented as of this encounter (statuses as of 12/20/2024) Medications citalopram (CELEXA) 20 MG Tablet Take 1 Tablet by mouth in the morning. 5 Active Cholecalciferol (VITAMIN D) 1000 UNIT Capsule Take 1 Capsule by mouth in the morning. Active Magnesium 400 MG Oral Capsule Take 1 Capsule by mouth in the morning. Active traMADol HCl 50 MG Oral Tablet (Ultram) 1 Tablet as needed. 4 Active Memantine HCl ER 28 MG Oral Capsule Extended Release 24 Hour (Namenda XR) Take 1 Capsule by mouth in the morning. Take with largest meal of the day. (Replaces immediate release memantine). 90 Capsule 1 4 Active lamoTRIgine ER 200 MG Oral Tablet Extended Release 24 Hour (LaMICtal XR) Take 2 tabs daily 180 Tablet 1 5 Active lamoTRIgine ER 50 MG Oral Tablet Extended Release 24 Hour (LaMICtal XR) Take one daily with 200 mg tabs 90 Tablet 1 5 Active documented as of this encounter (statuses as of 12/20/2024) Active Problems Problem Noted Date Diagnosed Date Senile osteoporosis 01/21/2023 Alzheimer's dementia 06/04/2022 Overview (02/10/2024): Per Neurology visit note Dr Christine Morgan 05/09/22 Per Neurology visit note Dr Christine Morgan 05/09/22 Per Neurology visit note Dr Christine Morgan 05/09/22 Compression fracture of body of thoracic vertebr a 04/15/2022 Overview (04/15/2022): multiple Anxiety 04/15/2022 Seizure disorder, complex pa rtial, without intractable epilepsy 07/09/2016 Convulsions documented as of this encounter (statuses as of 12/20/2024) Resolved Problems Problem Noted Date Diagnosed Date Resolved Date Seizures 04/15/2022 04/15/2022 documented as of this encounter (statuses as of 12/20/2024) Social History Tobacco Use Types Packs/Day Years Used Date Smoking Tobacco: Never Smokeless Tobacco: Never Alcohol Use Standard Drinks/Week Comments Yes 0 (1 standard drink = 0.6 oz pure alcohol) As of 11.14.2006, the last noted alcohol intake was 3 ounces. Utilities Answer Date Recorded Do you have trouble paying y our heating, water, or electric bill? (Adult - for ages 18 years and over) Not on file 03/15/2024 Is your family able to pay t he heat, water, or electric bill? (Household - for ages 0-17 years) Not on file 03/15/2024 Does your family have access to good internet? (Household - for ages 0-17 years) Not on file 03/15/2024 Social Connections Answer Date Recorded How often do you feel lonely or isolated from those around you? (Adult - for ages 18 years and over) Not on file 03/15/2024 Comments No Sex and Gender Information Value Date Recorded Sex Assigned at Not on file Legal Sex Female 5:15 AM EST Gender Identity Not on file Sexual Orientation Not on file documented as of this encounter Miscellaneous Notes * Telephone Encounter - Kiley Chong LPN - 12/20/2024 2:09 PM EDT Lab orders mailed to pt * Telephone Encounter - Pramod Jha MD - 12/20/2024 1:33 PM EDT Nurses - please print out lab slips and mail to patient documented in this encounter Plan of Treatment Upcoming Encounters Date Type Department Care Team (Late st Contact Info) Description 01/12/2025 1:00 PM EDT Office Visit Neurology [facility] [address] [place] [address] Sheila Trevizo MD [address] [facility] [place] [address] 02/15/2025 1:20 PM EDT Office Visit Rheumatology [facility] [address] [place] [phone] Pramod Jha MD [facility] [place] [address] Scheduled Orders Name Type Priority Associated Diagnoses Orde r Schedule CREATININE Lab Routine Senile osteoporosis Expected: 12/20/2024, Expires: 12/20/2025 CALCIUM Lab Routine Senile osteoporosis Expected: 12/20/2024, Expires: 12/20/2025 25-HYDROXY VITAMIN D Lab Routine Senile osteoporosis Expected: 12/20/2024, Expires: 12/20/2025 Health Maintenance Due Date Last Done Comments Depression Screening 1957 Hepatitis C Screening 1963 Zoster Vaccines (1 of 2) 1996 Pneumococcal Vaccine: 50+ Years (2 of 2 - PCV) 05/02/2016 05/02/2015 COVID-19 Vaccine (3 - 2023-2 5 season) 2024 11/23/2020, 11/02/2020 Influenza Vaccine (FLU shot) (#1) 2024 07/10/1998 DXA Scan 06/17/2026 06/17/2024, 10/25/2021, 10/30/2010 DTap/Tdap Vaccines (2 - Tdap) 05/27/2033 05/27/2023 VITAMIN D LEVEL ONCE IN A LIFETIME-USE SMARTSET# 20442 Completed 06/04/2022 HPV (Gardasil) Vaccine Aged Out No lo nger eligible based on patient's age to complete this topic Hepatitis B Vaccine Aged Out No longe r eligible based on patient's age to complete this topic MENINGOCOCCAL (MENACTRA/MENVEO) Aged Out No longer eligible b ased on patient's age to complete this topic Meningitis B Vaccine (Bexsero/Trumemba) Aged Out No longer eligible b ased on patient's age to complete this topic documented as of this encounter Medical Devices Not on filedocumented as of this encounter Visit Diagnoses Diagnosis Senile osteoporosis- Primary documented in this encounter Care Teams Flipping Machine Operator Relationship Specialty Start Date End Date Carolyn Pemberton DO [address] [place] [address], [place] [address] PCP - General Family Medicine 07/08/16 documented as of this encounter
--- OUTSIDE RECORDS SUMMARY | 2024-12-29 08:12 | External Medical Summary | Summary of Care ---
Author Name Unknown Organization [facility] [address] [facility] [address] Phone [phone] Care Team Providers Care Network Systems Integrator Name Role Phone iNlay Carolyn Rupa Primary Care Provider Encounter Details Date Type Department Care Team (Late st Contact Info) Description 12/27/2024 Orders Only PATIENT PORTAL DO NOT DELETE THIS DEPT USED BY [facility] [facility] [id number] Allergies Active Allergy Reactions Criticality Noted Date Comments Raloxifene Edema Other 2015 Raloxifene 07/09/2016 Levetiracetam 07/02/2022 Other reaction(s): depression Morphine 07/09/2016 Peanut-Containing Drug Products 02/10/2024 documented as of this encounter (statuses as of 12/27/2024) Medications citalopram (CELEXA) 20 MG Tablet Take [...] as of this encounter (statuses as of 12/27/2024) Active Problems Problem Noted Date Diagnosed Date [...] as of this encounter (statuses as of 12/27/2024) Resolved Problems Problem Noted Date Diagnosed Date Resolved Date Seizures 04/15/2022 04/15/2022 documented as of this encounter (statuses as of 12/27/2024) Social History Tobacco Use Types Packs/Day Years [...] on file documented as of this encounter Plan of Treatment Upcoming Encounters Date Type Department Care Team (Late st Contact Info) Description 01/12/2025 1:00 PM EDT Office Visit Neurology [facility] [address] [facility] [place] [address] Sheila Trevizo MD [address] [facility] [place] [address] 02/15/2025 1:20 PM EDT Office Visit Rheumatology [facility] [address] [place] [phone] Pramod Jha MD [address] [facility] [place] [address] Health Maintenance Due Date Last Done Comments [...] D LEVEL ONCE IN A LIFETIME-USE SMARTSET# 14100 Completed 06/04/2022 HPV (Gardasil) Vaccine Aged Out [...] Not on filedocumented as of this encounter Care Teams Network Systems Integrator Relationship Specialty Start Date End Date Carolyn Pemberton DO [address] [place] [address] PCP - General Family Medicine 07/08/16 documented as of this encounter
--- OUTSIDE RECORDS SUMMARY | 2024-12-29 08:12 | External Medical Summary | Summary of Care ---
Author Name Unknown Organization [facility] Address [address] [place] [address] Phone [phone] Care Team Providers Care Psychiatry Physician Name Role Phone Carolyn Pemberton Primary Care Provider Reason for Visit * Reason Comments eRx-Medication Refill Encounter Details Date Type Department Care Team (Late st Contact Info) Description 10/27/[address] [facility] [address] [facility] [place] [address] Sheila Trevizo MD [address] [place] [address] Partial symptomatic epilepsy with complex partial seizures, not intractable, without status epilepticus (HCC) Allergies Active Allergy Reactions Criticality Noted Date Comments Raloxifene Edema Other 2015 Raloxifene 07/09/2016 Levetiracetam 07/02/2022 Other reaction(s): depression Morphine 07/09/2016 Peanut-Containing Drug Products 02/10/2024 documented as of this encounter (statuses as of 10/28/2024) Medications citalopram (CELEXA) 20 MG Tablet Take [...] as of this encounter (statuses as of 10/28/2024) Active Problems Problem Noted Date Diagnosed Date [...] as of this encounter (statuses as of 10/28/2024) Resolved Problems Problem Noted Date Diagnosed Date Resolved Date Seizures 04/15/2022 04/15/2022 documented as of this encounter (statuses as of 10/28/2024) Social History Tobacco Use Types Packs/Day Years [...] encounter Miscellaneous Notes * Telephone Encounter - Evans Mota [facility] - 10/28/2024 9:31 AM ESTRefused Prescriptions: Disp Refills lamoTRIgine 25 MG Oral Tablet (LaMICtal) 180 Ta*1 Sig: Take 1 Tab by mouth 2 times a day.Refused By: Marek MOTA for Refusal: Refill Not Appropriate lamoTRIgine 200 MG Oral Tablet (LaMICtal) 180 Ta*1 Sig: Take 1 Tab by mouth 2 times a day.Refused By: Mraek MOTA for Refusal: Refill Not Appropriate documented in this encounter Plan of Treatment Upcoming Encounters Date Type Department Care Team (Late st Contact Info) Description 01/12/2025 1:00 PM EDT Office Visit Neurology [facility] [address] [place] [address] Sheila Trevizo MD [address] [place], [place] [phone] 02/15/2025 1:20 PM EDT Office Visit Rheumatology [facility] [address] [place] [address] Pramod Jha MD [address] [place] [address] Health Maintenance Due Date Last Done Comments [...] D LEVEL ONCE IN A LIFETIME-USE SMARTSET# 04331 Completed 06/04/2022 HPV (Gardasil) Vaccine Aged Out [...] as of this encounter Visit Diagnoses Diagnosis Partial symptomatic epilepsy with complex partial seizures, not intractable, without status epilepticus (HCC) documented in this encounter Care Teams Psychiatry Physician Relationship Specialty Start Date End Date Carolyn Pemberton DO [address] [place] [address] PCP - General Family Medicine 07/08/16 documented as of this encounter
--- OUTSIDE RECORDS SUMMARY | 2024-12-29 08:12 | External Medical Summary | Summary of Care ---
Author Name Unknown Organization [facility] Address [address] [facility] [place] [address] Phone [phone] Care Team Providers Care Neon Installer Name Role Phone Carolyn Pemberton Primary Care Provider Reason for Visit * Reason Onset Date Comments Returning Call 10/19/2024 Medication Question 10/28/2024 Encounter Details Date Type Department Care Team (Late st Contact Info) Description 10/19/2024 Telephone Neurology [address] [place] [phone] Services, Scheduling [address] [place] [address] Returning Call; Medication Question Allergies Active Allergy Reactions Criticality Noted Date Comments Raloxifene Edema Other 2015 Raloxifene 07/09/2016 Levetiracetam 07/02/2022 Other reaction(s): depression Morphine 07/09/2016 Peanut-Containing Drug Products 02/10/2024 documented as of this encounter (statuses as of 11/06/2024) Medications citalopram (CELEXA) 20 MG Tablet Take 1 Tablet by mouth in the morning. 06/01/20 15 Active Cholecalciferol (VITAMIN D) 1000 UNIT Capsule Take 1 Capsule by mouth in the morning. Active Magnesium 400 MG Oral Capsule Take 1 Capsule by mouth in the morning. Active traMADol HCl 50 MG Oral Tablet (Ultram) 1 Tablet as needed. 10/28/19 24 Active Memantine HCl ER 28 MG Oral Capsule Extended Release 24 Hour (Namenda XR) Take 1 Capsule by mouth in the morning. Take with largest meal of the day. (Replaces immediate release memantine). 90 Capsule 1 07/01/20 24 Active lamoTRIgine ER 200 MG Oral Tablet Extended Release 24 Hour (LaMICtal XR) Take 2 tabs daily 180 Tablet 1 10/28/19 25 Active lamoTRIgine ER 50 MG Oral Tablet Extended Release 24 Hour (LaMICtal XR) Take one daily with 200 mg tabs 90 Tablet 1 10/28/19 25 Active lamoTRIgine 200 MG Oral Tablet (LaMICtal)Indic ations:Partial symptomatic epilepsy with complex partial seizures, not intractable, without status epilepticus (HCC) Take 1 Tab by mouth 2 times a day. 180 Tablet 1 03/10/20 24 025 Discontinued lamoTRIgine 25 MG Oral Tablet (LaMICtal)Indic ations:Partial symptomatic epilepsy with complex partial seizures, not intractable, without status epilepticus (HCC) Take 1 Tab by mouth 2 times a day. 180 Tablet 1 03/10/20 24 025 Discontinued documented as of this encounter (statuses as of 11/06/2024) Active Problems Problem Noted Date Diagnosed Date [...] as of this encounter (statuses as of 11/06/2024) Resolved Problems Problem Noted Date Diagnosed Date Resolved Date Seizures 04/15/2022 04/15/2022 documented as of this encounter (statuses as of 11/06/2024) Social History Tobacco Use Types Packs/Day Years [...] encounter Miscellaneous Notes * Telephone Encounter - Erin Almonte MED ASSIST - 10/28/2024 9:06 AM EST Clarified with pharmacy pt is changing to taking rx once daily instead of twice * Telephone Encounter - Odessa Morris french teacher - 10/28/2024 8:46 AM EST Bill from [facility] calling to clarify if Lamotrigine 200 mg and 50 mg were to be changed to ER version as pt was previously on regular tablets. Please clarify if sent as ER in error or intended to [phone]. Thanks, Odessa Morris Project Drilling Engineer III [facility] 10/28/2024,8:47 AM * Telephone Encounter - Erin Almonte MED ASSIST - 10/28/2024 8:33 AM EST Made pt's aware and they expressed understanding. * Telephone Encounter - Sheila Trevizo MD - 10/28/2024 8:26 AM EST I have sent in a prescription for a total daily dose Lamictal 450 mg once a day if she has not beentaking that specific dose he should let me know * Telephone Encounter - Erin Almonte, MED ASSIST - 10/26/2024 8:30 AM EST Pharmacy selected * Telephone Encounter - Kaylie Pierson OSA - 10/26/2024 8:21 AM EST Pt's returning [facility] was a general seizure. Feels once a day is manageable. [facility] with any questions. TY * Telephone Encounter - Erin Almonte MED ASSIST - 10/26/2024 8:05 AM EST LMOM. * Telephone Encounter - Erin Almonte MED ASSIST - 10/21/2024 10:55 AM EST LMOM. Ok to relay Dr Trevizo's message when call is returned. Sending MyG as well * Telephone Encounter - Sheila Trevizo MD - 10/21/2024 8:11 AM EST Tell pt that I rev med rec and saw that she had missed several doses of lamictal and that her level was very low. The med rec indicates sz was 30 sec but she was post-ictal for a while after.Was the spell a staring spell or genl sz? We would pbly prescribe a once a day form of lamictal if he felt he could get it in once a day * Telephone Encounter - Erin Almonte, MED ASSIST - 10/20/2024 10:[address] Trevizo- records are on your desk * Telephone Encounter - Erin Almonte MED ASSIST - 10/20/2024 9:30 AM EST I have no objection to her taking gabapentin her aspirin. Can we see if they checked her Lamictal level IE get records [facility]. Did they adjust her Lamictaldose Records requested from both [place] and [place]. LMOM. When call is returned please make pt/ aware that there is no objection to pt taking Gabapentin or Aspirin. Did they adjust the dose of Lamictal while in ER? * Telephone Encounter - Bharati Castillo OSA - 10/19/2024 2:28 PM EST Neuroscience Phone Call Form- Requested Information from caller: Who is calling patient;s Anupam Provider patient is established with: What is the concern or issue they are having: Anupam is calling to let know that the patient had a seizure on 10/14/24, the seizure lasted for 10-15 minutes and pt drooled at the mouth and was not responding. and was taken to [facility] on Thursday night and they checked her Troponin levels and they registered high and transferred her to [facility] in [facility]. She was admitted for two days and the levels of Troponin were lowered and she was discharged after being cleared by Cardiology. Patient was prescribed baby aspirin 81mg and gabapentin 100mg but he does not feel comfortable giving her this medication until he speaks with . Pt is sleeping in today How long has the issue been going on: 10/19/24 Any additional details to add: no Phone number for nurse to call back: [phone] Are forms needed? no Medication Refill? no Verify Pharmacy information is correct. Form to be used for established patients only (not new patients) Clinic has 24-48 hours to respond to caller. If caller is calling back before timeframe with any changes in condition/issues reported, update TEand re-route to appropriate pool If caller is calling back before timeframe- update TE- no need to re-route Peds Neurology Pool- [facility] Neuro Research Environmental Scientist- [id number] (All messages get sent to the [facility]) Neurology Pool Numbers- [place] patients - follow normal process Ops req [facility] Neurology ([place])- [id number] Ops req [place] [facility] ([place]- [facility] and [facility] clinics Only)- [id number] Neurosurgery Pool Numbers- [place] patients- follow normal process Ops req Neurosurgery [facility] ([place])- [id number] Ops req Neurosurgery [facility] ([place] Only) [id number] documented in this encounter Plan of Treatment Upcoming Encounters Date Type Department Care Team (Late st Contact Info) Description 01/12/2025 1:00 PM EDT Office Visit Neurology [facility] [address] [facility] [place] [address] Sheila Trevizo MD [address] [facility] [place] [address] 02/15/2025 1:20 PM EDT Office Visit Rheumatology [facility] [address] [place] [phone] Pramod Jha MD [address] [place] [address] Health Maintenance Due Date Last Done Comments [...] D LEVEL ONCE IN A LIFETIME-USE SMARTSET# 40413 Completed 06/04/2022 HPV (Gardasil) Vaccine Aged Out [...] filedocumented as of this encounter Care Teams Neon Installer Relationship Specialty Start Date End Date Carolyn Pemberton DO [address] Annetta Patel [address] [place] [address], [place] [address] PCP - General Family Medicine 07/08/16 documented as of this encounter
[2024-12-29 10:58] LABS: C Reactive Protein 0.76 mg/dl (0-0.5); Magnesium 1.6 mg/dl (1.7-2.4)
[2024-12-29] MEDS: ACETAMINOPHEN 1,000 MG/100 ML VIAL IV STA (11:00)
--- NOTE | 2024-12-29 13:57 | XRay Report ---
XR wrist RT 2V CLINICAL HISTORY: post reduction COMPARISON: 12/28/2024 FINDINGS: 3 views of the right wrist in an immobilization device demonstrate no significant interval change since the prereduction images of 12/28/2024. There is persistent impaction, comminution, and ap proximately 60 degrees of dorsal angulation of the distal radial fracture. IMPRESSION: No significant reduction in the displaced distal radial fracture is identified. ACT 112: Negative or not required by law. Electronically signed by: Hillary Woodward M.D. 12/29/2024 1:56 PM
--- NOTE | 2024-12-29 15:01 | Fluoroscopy Report ---
FL wrist RT 2V CLINICAL HISTORY: POST REDUCTION COMPARISON STUDY: Earlier the same date FLUOROSCOPY TIME: 7 seconds FLUOROSCOPY IMAGES: 2 EXPOSURE DOSE: 0.2 mGy FINDINGS: Fluoroscopic guidance was provided for displaced fracture reduction in the distal right rad ius. 2 C-arm spot images are of relatively poor quality but they do suggest a significant reduction i n the impaction and dorsal angulation. IMPRESSION: Please refer to procedural report for evaluation based upon real-time fluoroscopic observ ation. ACT 112: Negative or not required by law. Electronically signed by: Hillary Woodward M.D. 12/29/2024 2:59 PM
--- NOTE | 2024-12-29 15:03 | Orthopedic Consultation ---
Date of Consultation December 29, 2024 Assessment & Plan (1) Fracture of right wrist: (2) Cervical spine fracture: (3) Alzheimer dementia: (4) Chronic venous insufficiency: (5) Ambulatory dysfunction: Plan This is a 79-year-old female who fell onto an outstretched right upper extremity about 2 days ago and sustained a closed, traumatic, displaced right distal radius fracture. This is an intra-articular fracture. The patient did have an attempted reduction last evening by the emergency department, however on my review of the postreduction imaging, the alignment appears to be unchanged. I had a long discussion with the patient's and daughter with regards the nature of this injury. We discussed in great detail the pathoanatomy, pathophysiology, treatment options. I did discuss with him that recent literature has demonstrated that intra-articular distal radius fractures in patients over the age of 72 often times can heal with appropriate function with nonoperative measures. I expressed to them that given the significant amount of displacement that is able to be seen on this fracture, my recommendation would be for a closed reduction and splinting with potential transition to casting later. The patient's and daughter were thankful for this recommendation as they felt as if the patient has continued in significant pain even after the first splint was placed. They also note that considering she is on hospice, they would not be interested in surgical management moving forward anyways. Given the patient's hospice care, her family is wishes, my recommendation was for close reduction and splinting in the emergency department with plans for nonoperative care. I did discuss with the patient's family the risks of closed reduction including but not limited to loss of life/limb, conversion to open, need for surgery in the future, continued pain, compartment syndrome. They understand and wish to proceed. Please see separate procedure note for full details. Following reduction, the patient's alignment was markedly improved, however not perfect. I do think that if the patient's fracture is to heal and this position, she will have reasonable function of her right upper extremity. I do think that close follow-up with regards to the fracture is important, so I will plan to see her in the office in about a week to check x-rays. She should be nonweightbearing on her right upper extremity. She should use a sling as needed for comfort. Positions. The patient has been admitted for ambulatory dysfunction. No plans for orthopedic intervention during this hospitalization. History of Present Illness Reason for Consultation: right wrist fracture Attending Physician: Osmel Ceron MD History of Present Illness 79-year-old female PMHx Alzheimer's dementia, seizure disorder, and chronic venous insufficiency presenting with for fall on the day prior to admission. provides a history. Patient's states that he witnessed her leaning and then she fell to the ground landing on her right wrist. States that this is not the first fall and that she has had a previous fall earlier in the week making that a total of 2 falls over the past week. 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 ED evaluation revealed no leukocytosis, slightly decreased H/H at 11.7/33.8; CMP BUN 27, ratio 35.5, glucose 101; UA without infection; Cervical spine CT fracture through R lamina of C8 and 3 mm anterolisthesis of C6 on C7, fracture through right transverse process of C7; head CT with no acute findings; shoulder x-ray with no acute findings; wrist x-ray with displaced intra- articular distal radius fracture. Of note, the patient has been on hospice services for the last 6 months. Upon my evaluation, the patient is resting in a splint applied by the emergency department. She seems to be complaining mostly of her right wrist pain. She is quite combative due to her dementia and was unable to provide any additional history. Allergies Allergy/AdvReac Type Severity Reaction Status Date / Time raloxifene [From Evista] Allergy Intermediate swelling Verified 12/28/24 21:37 levetiracetam [From Keppra] AdvReac Intermediate depression Verified 12/28/24 21:37 morphine AdvReac Unknown Unknown Verified 12/28/24 21:37 Home Medications Medication Instructions Recorded Confirmed Type CBD oil 1 dose PO DIRECTED PRN NEEDED 10/13/24 12/28/24 History Abh Gel 1 dose PO Q4H PRN 12/28/24 12/28/24 History RESTLESSNESS/AGITATION haloperidol lactate 2 mg/mL oral 1 mg Q6 12/28/24 12/28/24 History concentrate hydrocodone 5 mg-acetaminophen 325 1 tab PO Q4H PRN Pain 12/28/24 12/28/24 History mg tablet sennosides 8.6 mg tablet (senna) 17.2 mg PO BID 12/28/24 12/28/24 History Patient History Medical History Epilepsy Toe swelling Varicose veins of both lower extremities Vitamin D deficiency Thoracic compression fracture Poor balance Osteoporosis Memory change Intertrigo Hemorrhoids Colon polyps Arrhythmia Surgical History S/P tonsillectomy S/P hemorrhoidectomy S/P colonoscopy Family History Father Colon cancer Mother Myocardial infarction Hypertension Social History Smoking Status: Unknown if ever smoked Hx Alcohol Use: No Hx Substance Use: No Preferred Language: British Communication Ability: Unable Sewing Supervisor Required: No marital status: Current Living Situation: Spouse current occupational status: retired Feels Safe at Home: Yes Physical Activity Frequency: Does not Exercise Assistive Devices: Hospital Bed and Walker Review of Systems Review of Systems: Unobtainable due to cognitive status Physical Exam Physical Exam: Right upper extremity: Splint was removed and skin examined. Patient has no open wounds appreciated, but large ecchymosis and significant soft tissue swelling of the right distal radius. Patient does demonstrate ability to wiggle all fingers and radial pulses palpable. Her fingers are warm and well-perfused. Results & Data Vital Signs (Past 12 Hours) Vital Signs Pulse Pulse Resp BP BP Pulse Ox O2 Del Method 12/29/24 13:00 70 19 12/29/24 12:00 61 14 12/29/24 11:00 68 18 12/29/24 10:00 73 17 12/29/24 09:09 77 18 12/29/24 08:12 81 13 12/29/24 07:03 92 H 21 12/29/24 06:33 98 H 21 12/29/24 06:23 108 H 12/29/24 05:00 112 H 28 H 12/29/24 04:24 93 H 12 12/29/24 04:05 153/88 H 12/29/24 04:05 153/88 H 12/29/24 04:00 108 H 20 153/88 H 94 Room Air Diagnostic Findings Prereduction and postreduction x-rays of the right wrist were personally interpreted and reviewed. These demonstrate an intra-articular right distal radius fracture with severe dorsal comminution, dorsal angulation. No significant improvement was noted on postreduction imaging. (1) Fracture of right wrist Encounter type: initial encounter Fracture type: closed Qualified Code(s): S62.101A - Fracture of unspecified carpal bone, right wrist, initial encounter for closed fracture
[2024-12-29] MEDS: HYDROCODONE/ACETAMOPHEN 5/325MG TAB PO PRN (15:10)
[2024-12-29] MEDS: lamoTRIgine 25 MG TAB PO SCH (15:10)
[2024-12-29] MEDS: SENNA 8.6 MG TAB PO SCH (15:10)
[2024-12-29] MEDS: CYANOCOBALAMIN (B-12) 500 MCG TABLET PO SCH (15:10)
[2024-12-29] MEDS: LIDOCAINE 1% LOCAL 20 ML VIAL ONE (15:11)
--- NOTE | 2024-12-29 15:29 | XRay Report ---
XR wrist RT 2V CLINICAL HISTORY: POST REDUCT RIGHT WRIST COMPARISON: 12/29/2024 and 12/28/2024 FINDINGS: 4 views of the right wrist in an immobilization device demonstrate diminished impaction an d reduced dorsal angulation of a comminuted Colles' fracture of the distal right radius. The 60 degre es of dorsal angulation has been reduced to approximately 30 to 40 degrees. The radial styloid is osmel ewhat offset laterally. The small ulnar styloid avulsion is noted. IMPRESSION: Improvement with residual deformity noted. ACT 112: Negative or not required by law. Electronically signed by: Hillary Woodward M.D. 12/29/2024 3:28 PM
[2024-12-29] MEDS: MAGNESIUM SULFATE / D5W 1 GM/100 ML BAG IV SCH (15:54)
--- NOTE | 2024-12-29 15:54 | Procedure Note ---
Procedure Note Date of Service December 29, 2024 Note Right distal radius closed reduction and splinting procedure note Surgeon: Humberto Porras DO Preop diagnosis: Right intra-articular distal radius fracture Postop diagnosis: Right intra-articular distal radius fracture Indications: 79-year-old female who fell and sustained a closed, traumatic, displaced right intra-articular distal radius fracture. Attempted reduction was done by the emergency department, however no improvement was noted, as such I recommended repeat attempted reduction. I discussed with the patient's family the risks of this procedure include but not limited to loss of life/limb, infection, need for surgery in the future, conversion to open, compartment syndrome, continued pain. They understood the risks and wished to proceed. Procedure: A total of 10 cc of 1% lidocaine without epinephrine were used in a hematoma block fashion. Once adequate analgesia was achieved, traction and reduction maneuver were placed on the right upper extremity until an adequate reduction was obtained. We checked the reduction using mini C arm fluoroscopy. We then held this reduction while a well-padded sugar-tong splint was applied and the reduction was then held while the splint cured. Postreduction imaging was obtained demonstrating improved alignment as compared to prior following the reduction, the patient's fingers remain warm and well-perfused and she demonstrated the ability to wiggle her digits. Plan: Patient is admitted to the hospital service for ambulatory dysfunction. No plans for acute orthopedic intervention. Likely nonoperative care for her right distal radius fracture and due to her age and comorbidities and hospice care. Nonweightbearing right upper extremity. Keep splint clean and dry. Follow-up in the office 1 week Coding
--- NOTE | 2024-12-29 15:54 | Orthopedic Consultation ---
Date of Service December 29, 2024 History of Present Illness Reason for Consultation: Cervical spine fracture, history of falls. Requesting Physician: . Attending Physician: Osmel Ceron MD 79-year-old female with past medical history of Alzheimer's dementia who presents accompanied by her for evaluation status post a fall. He states that she fell this evening. She was walking and seemed to lose her balance and fell, injuring the right wrist. He does note that she had another fall about 5 days ago and at that time hit her face off of the door frame. She has some bruising around the left eye due to this. She does not take any anticoagulants. He states that since the first fall, she seems to have been moving the right arm less than usual. Patient underwent scanning relative to the cervical spine and head due to bruising and ecchymosis in that region, also radiographs involving the right arm revealing wrist fracture. Patient is not ca pable of responding to questioning or cooperating with an examination. Exam reveals the right upper extremity to be supported with a splint, I was able to note some limited finger flexion at times. Left arm revealed 5/5 strength for elbow flexion, and also extension and limited amount of shoulder abduction, some yoga instructor was noted at least in the 4-5 range out of 5. Lower extremity motion was detected, but no exam relative to motor strength on command was obtainable. EXAM:CT Cervical Spine Without Intravenous Contrast December 28, 2024 CLINICAL HISTORY:Reason for exam: head injury. COMPARISON:05/27/23 FINDINGS: Vertebrae: Osteopenia. Fracture through the right lamina of C6 (sagittal 44), new from prior. There is 3 mm anterolisthesis of C6 on C7 which is new from prior exam and may reflect an acute posttraumatic finding. Stable chronic fracture through the left lamina of C5. Fracture through the right transverse process of C7 (coronal 68) which is new from prior but chronic in appearance. No additional fractures. Discs/spinal canal/neural foramina: Advanced degeneration at the atlantodental joint. Mild disc degeneration at multiple cervical levels. Multilevel bilate ral facet joint degeneration. Mid and lower cervical uncovertebral joint degeneration. No significant central spinal canal stenosis. Soft tissues: Unremarkable. IMPRESSION: Fracture through the right lamina of C6 (sagittal 44), new from prior and possibly acute. There is 3 mm anterolisthesis of C6 on C7 which is new from prior exam and suggests a posttraumatic finding. Fracture through the right transverse process of C7, new from prior but chronic in appearance. Review of CT scan images of the cervical spine from [facility] from December 28, 2024, this my separate interpretation, the above listed images were reviewed, I also had axial reformats performed, this reveals the patient to have evidence of subacute fractures involving the pedicles of C6 and facets on the right side at C6-7, also right-sided lamina fracture. These appear to be subacute, and of the reason for the slight subluxation. Impression: Advance Alzheimer's with CT scan evidence of prior fractures involving his C6 and C7 vertebral and/or facets, some subluxation noted at 3 mm, fractures appear to be subacute. Recommendations: At this time I would recommend only cervical orthosis, I do not think the patient would require a halo as I think these injuries are subacute currently. Patient will require some follow-up with radiographs, consideration should be made for the patient to be placed in a facility that better monitoring relative to continued falls can be obtained. Allergies Allergy/AdvReac Type Severity Reaction Status Date / Time raloxifene [From Evista] Allergy Intermediate swelling Verified 12/28/24 21:37 levetiracetam [From Keppra] AdvReac Intermediate depression Verified 12/28/24 21:37 morphine AdvReac Unknown Unknown Verified 12/28/24 21:37 Home Medications Medication Instructions Recorded Confirmed Type CBD oil 1 dose PO DIRECTED PRN NEEDED 10/13/24 12/28/24 History Abh Gel 1 dose PO Q4H PRN 12/28/24 12/28/24 History RESTLESSNESS/AGITATION haloperidol lactate 2 mg/mL oral 1 mg Q6 12/28/24 12/28/24 History concentrate hydrocodone 5 mg-acetaminophen 325 1 tab PO Q4H PRN Pain 12/28/24 12/28/24 History mg tablet sennosides 8.6 mg tablet (senna) 17.2 mg PO BID 12/28/24 12/28/24 History Past Med/Surg History Problem List Cervical spine fracture Ambulatory dysfunction Fracture of right wrist (Acute) Alzheimer dementia Chronic venous insufficiency Depression (Chronic) Seizure disorder (Chronic) Contusion of rib on right side (Acute) Seizures (Acute) Medical History Epilepsy Toe swelling Varicose veins of both lower extremities Vitamin D deficiency Thoracic compression fracture Poor balance Osteoporosis Memory change Intertrigo Hemorrhoids Colon polyps Arrhythmia Surgical History S/P tonsillectomy S/P hemorrhoidectomy S/P colonoscopy Family History Father Colon cancer Mother Myocardial infarction Hypertension Social History Smoking Status: Unknown if ever smoked Hx Alcohol Use: No Hx Substance Use: No Preferred Language: Iranian Communication Ability: Unable Automotive Vehicle Inspector Required: No marital status: Current Living Situation: Spouse current occupational status: retired Feels Safe at Home: Yes Physical Activity Frequency: Does not Exercise Assistive Devices: Hospital Bed and Walker Review of Systems All systems reviewed & are unremarkable except as noted in HPI & below. Physical Exam . Results & Data Results & Data Laboratory Results . Diagnostic Findings . PG Care Time/CCT Total # of Minutes Spent Total Time Spent with Patient: Total time spent is greater than 50% in coordination of care (as documented) at patient's floor/unit and/or counseling patient: Coding Level of Care Code 07284 IN/OBS CONSULT LVL 3,45M
[2024-12-29] MEDS ORDERED: ACETAMINOPHEN 325 MG TAB PO PRN (16:23)
--- NOTE | 2024-12-29 16:50 | Hospitalist Progress Note ---
Date of Service December 29, 2024 Assessment & Plan (1) Ambulatory dysfunction: (2) Fracture of right wrist: (3) Cervical spine fracture: Plan 79yo female on HOSPICE with PMHx significant for Alzheimer's dementia, seizure disorder, chronic venous insufficiency presented to ER for FALL after loosing her balance and fell injuring her RIGHT wrist Prior fall ~5 days ago w/ reports hitting her face off door frame -- does have ecchymosis to her L face/orbit but pupil equal/reactive and intact EOM CT head negative for acute CVA Shoulder Xray without acute fracture, notes OA WBC wnl on admission, UA not appearing infected. Glu 101. BUN/Cr 27/0.76. CT cervical spine noting fracture to RIGHT lamina of C6, new from prior, possibly acute. 3mm anterolisthesis of C6 on C7 new from prior and suggests post-traumatic finding. Fracture through R transverse process C7 appears chronic Xray R wrist noting acute impacted, mildly displaced intra-articular distal radius fracture with 60 degrees dorsal angulation of distal fragment --Apparently was discussed w/ ortho/orthospine on admission (Dr Porras, Dr Rich) and no need for surgical intervention and encourage C spine collar as allows and R wrist splinted #RIGHT Radial wrist fracture Noted on xray above w/ ANGULATION concerning for need for reduction to promote healing/control pain Orthopedics consult, Dr Porras, placed. Messaged and patient s/p reduction and placed in sugar tong splint. NWB RUE and will f/u outpatient for repeat imaging will check Vit D w/ AM labs Pain control - added tylenol, can continue norco for breakthrough. Bowel regimen- continue senna BID, monitor for issues given constipation at baseline per PT/OT consults placed Will get hospice to cover wheelchair for at mi, would like to take home tomorrow if possible #Cervical Spine fracture Noted C6 lamina fracture, possible acute and anterolisthesis of C6 on C7 likely post-traumatic Per Dr Rich discussion w/ ER, no need for intervention Did order cervical collar -- wore most of the morning but can take off for comfort if needed. No heavy lifting as discussed. #Ambulatory Dysfunction With recurrent falls and advanced Alzheimer's dementia. Patient's concern for patient's safety while at home, interested in discussing placement options but per discussion today does want to take home and on hospice and has assistance and will monitor PT/OT consults as placed to see if hospice would cover short term. CM consult and discussed with them this evening 4/3 Suspect fall mechanical but monitor on tele Did check Mag given fall and hx migraines -- LOW 1.6, 2gm IV ordered and will monitor in AM Fall precautions #Hospice status - on hospice at home, currently inpatient for pain control/tx fracture and therapy evals. goal to return home. CM as above. Additional services as able. Notable does have some chronic small vessel disease on CT head but no acute CVA but could consider baby ASA as tolerated #Agitation at baseline, 2nd to advanced dementia. Ativan x 1 in ER. UA not infected appearing. Frequent orientation, redirect as needed Continue Haldol qmg q6h as takes at home Pain control for above DVT Proph: SCDs, can add chemoproph if remains inpatient Dispo:continued inpatient stay on telemetry, PT/OT consults pending and hopeful dc 12/30 home w/ Updated at bedside 12/29. CM to follow for any additional services Admission and Anticipated Discharge Date Admission Date: December 29, 2024 Supervising Physician Co-Signing Physician Notes The patient was not seen by me. The chart was reviewed. Case discussed with CHARLY Hidalgo. Agree with assessment and plan Subjective BRIDGE NOTE: ADMIT AFTER MIDNIGHT Patient evaluated this afternoon, in room. Discussed spoke w/ orthopedics following review of imaging and consult for Dr Porras. reports was just in not too long ago for reduction, remains in sugar kendra splint. Cervical collar as tolerated, currently off but wore all morning. reports patient is on hospice, would like to return home as goal. Inquired about constipation issues at all, does have +BS throughout but he does endorse yes at baseline takes senna twice daily. Will make sure order to prevent issues. PT/OT consults pending, hopeful dc tomorrow pending outcome. Will need to touch base w/ CM about home health if on hospice if able to be covered service. Physical Exam 2 Physical Exam: General: 79yo female laying in bed, at bedside, just had reduction to her RIGHT wrist, currently in sugar kendra splint, fingers mobile/sensation intact : No acute distress Skin: Warm and dry Head: Normocephalic, atraumatic Eyes: PERRL, conjunctivae clear, sclera non-icteric ENT: External ear and ear canal without swelling; nose atraumatic; good dentition, tongue normal appearance, pharynx normal Neck: Supple, no LAD Cardio: RRR, no M/G/R, S1 and S2 normal Resp: No respiratory distress, Lungs CTA in all lobes bilaterally, no wheezes, rales, or rhonchi Abdomen: Soft, symmetric, nontender; No masses or hepatosplenomegaly; Bowel sounds normoactive MSK: No deformities; pulses palpable and equal; no edema. Neuro: Awake, alert; Sensation intact bilaterally; CN grossly intact Psych: Appropriate mood and affect; good judgement and insight. Results & Data Results & Data Vital Signs (Past 12 Hours) Vital Signs Temp Pulse Pulse Resp BP Pulse Ox O2 Del Method 12/29/24 16:03 66 12/29/24 16:00 36.4 C L 73 18 164/69 H 92 Room Air 12/29/24 13:00 70 19 12/29/24 12:00 61 14 12/29/24 11:00 68 18 12/29/24 10:00 73 17 12/29/24 09:09 77 18 12/29/24 08:12 81 13 12/29/24 07:03 92 H 21 12/29/24 06:33 98 H 21 12/29/24 06:23 108 H 12/29/24 05:00 112 H 28 H Laboratory Results 12/29/24 02:01 12/29/24 02:01 Mag 1.6 CRP 0.76 ESR 9 Diagnostic Findings Cervical Spine CT 12/28/24 19:54 Exam(s): CT C SPINE EXAM: CT Cervical Spine Without Intravenous Contrast CLINICAL HISTORY: Reason for exam: head injury. TECHNIQUE: Axial computed tomography images of the cervical spine without intravenous contrast. CTDI is 25.68 mGy and DLP is 459.38 mGy-cm. Automated exposure control was utilized for the study. A dose lowering technique was utilized adhering to the principles of ALARA. COMPARISON: 05/27/23 FINDINGS: Vertebrae: Osteopenia. Fracture through the right lamina of C6 (sagittal 44), new from prior. There is 3 mm anterolisthesis of C6 on C7 which is new from prior exam and may reflect an acute posttraumatic finding. Stable chronic fracture through the left lamina of C5. Fracture through the right transverse process of C7 (coronal 68) which is new from prior but chronic in appearance. No additional fractures. Discs/spinal canal/neural foramina: Advanced degeneration at the atlantodental joint. Mild disc degeneration at multiple cervical levels. Multilevel bilateral facet joint degeneration. Mid and lower cervical uncovertebral joint degeneration. No significant central spinal canal stenosis. Soft tissues: Unremarkable. IMPRESSION: Fracture through the right lamina of C6 (sagittal 44), new from prior and possibly acute. There is 3 mm anterolisthesis of C6 on C7 which is new from prior exam and suggests a posttraumatic finding. Fracture through the right transverse process of C7, new from prior but chronic in appearance. Electronically signed by: Mila Benavides M.D. 12/28/24 22:[address] 12/28/24 19:54 Exam(s): CT HEAD Without Contrast EXAM: CT Head Without Intravenous Contrast CLINICAL HISTORY: Reason for exam: head injury. TECHNIQUE: Axial computed tomography images of the head/brain without intravenous contrast. CTDI is 39.02 mGy and DLP is 624.41 mGy-cm. Automated exposure control was utilized for the study. A dose lowering technique was utilized adhering to the principles of ALARA. COMPARISON: 06/05/24 FINDINGS: Brain: Age-related parenchymal volume loss. Mild to moderate chronic small vessel ischemic change. Landeros-white matter differentiation maintained. No hemorrhage, mass effect, parenchymal edema, or midline shift. Ventricles: No hydrocephalus. Bones/joints: No acute fracture. Soft tissues: Unremarkable. Vasculature: Intracranial atherosclerosis. Sinuses: Unremarkable as visualized. Mastoid air cells: No significant mastoid effusion. IMPRESSION: No acute intracranial process. Electronically signed by: Mila Benavides M.D. 12/28/24 22:47 PM Shoulder X-Ray 12/28/24 19:54 Exam(s): XR SHOULDER, 2+ views EXAM: XR Right Shoulder Complete, 2 or More Views CLINICAL HISTORY: Reason for exam: right shoulder injury. TECHNIQUE: Two or more views of the right shoulder. COMPARISON: No relevant prior studies available. FINDINGS: Bones/joints: Mild osteoarthritis of the acromioclavicular joint. No acute fracture or dislocation. Multiple old right rib fractures. Spondylosis in the thoracic spine. Soft tissues: Unremarkable. IMPRESSION: No acute findings in the right shoulder. Electronically signed by: Mila Benavides M.D. 12/28/24 22:46 PM Wrist X-Ray 12/28/24 19:54 Exam(s): XR RIGHT WRIST, 3+ views EXAM: XR Right Wrist Complete, 3 or More Views CLINICAL HISTORY: Reason for exam: right wrist injury. TECHNIQUE: Frontal, lateral and oblique views of the right wrist. COMPARISON: No relevant prior studies available. FINDINGS: Bones/joints: Acute impacted, mildly displaced intra-articular distal radius fracture with 60° dorsal angulation of the distal fragment. No visible ulnar fracture. No dislocation. Soft tissues: Soft tissue swelling. No radiopaque foreign body. IMPRESSION: Acute impacted, mildly displaced intra-articular distal radius fracture with 60° dorsal angulation of the distal fragment. Electronically signed by: Mila Benavides M.D. 12/28/24 22:28 PM Wrist X-Ray 12/29/24 00:00 XR wrist RT 2V CLINICAL HISTORY: POST REDUCT RIGHT WRIST COMPARISON: 12/29/2024 and 12/28/2024 FINDINGS: 4 views of the right wrist in an immobilization device demonstrate diminished impaction and reduced dorsal angulation of a comminuted Colles' fracture of the distal right radius. The 60 degrees of dorsal angulation has been reduced to approximately 30 to 40 degrees. The radial styloid is somewhat offset laterally. The small ulnar styloid avulsion is noted. IMPRESSION: Improvement with residual deformity noted. ACT 112: Negative or not required by law. Electronically signed by: Hillary Woodward M.D. 12/29/2024 3:28 PM Wrist X-Ray 12/29/24 13:38 XR wrist RT 2V CLINICAL HISTORY: post reduction COMPARISON: 12/28/2024 FINDINGS: 3 views of the right wrist in an immobilization device demonstrate no significant interval change since the prereduction images of 12/28/2024. There is persistent impaction, comminution, and approximately 60 degrees of dorsal angulation of the distal radial fracture. IMPRESSION: No significant reduction in the displaced distal radial fracture is identified. ACT 112: Negative or not required by law. Electronically signed by: Hillary Woodwrad M.D. 12/29/2024 1:56 PM Wrist X-Ray 12/29/24 14:18 FL wrist RT 2V CLINICAL HISTORY: POST REDUCTION COMPARISON STUDY: Earlier the same date FLUOROSCOPY TIME: 7 seconds FLUOROSCOPY IMAGES: 2 EXPOSURE DOSE: 0.2 mGy FINDINGS: Fluoroscopic guidance was provided for displaced fracture reduction in the distal right radius. 2 C-arm spot images are of relatively poor quality but they do suggest a significant reduction in the impaction and dorsal angulation. IMPRESSION: Please refer to procedural report for evaluation based upon real- time fluoroscopic observation. ACT 112: Negative or not required by law. Electronically signed by: Hillary Woodward M.D. 12/29/2024 2:59 PM PG Care Time/CCT Total # of Minutes Spent Total Time Spent with Patient: Total time spent is greater than 50% in coordination of care (as documented) at patient's floor/unit and/or counseling patient: Coding Level of Care Code None Diagnoses Ambulatory dysfunction R26.2 Fracture of right wrist S62.101A Encounter type: initial encounter Fracture type: closed Cervical spine fracture S12.9XXA (2) Fracture of right wrist Encounter type: initial encounter Fracture type: closed Qualified Code(s): S 62.101A - Fracture of unspecified carpal bone, right wrist, initial encounter for closed fracture
[2024-12-30] MEDS ORDERED: PHA DELIRIUM CONSULT PRN (02:07)
--- NOTE | 2024-12-30 07:45 | Hospitalist Progress Note ---
Date of Service December 30, 2024 Assessment & Plan (1) Ambulatory dysfunction: (2) Fracture of right wrist: (3) Cervical spine fracture: Plan 79yo female on HOSPICE with PMHx significant for Alzheimer's dementia, seizure disorder, chronic venous insufficiency presented to ER for FALL after loosing her balance and fell injuring her RIGHT wrist Prior fall ~5 days ago w/ reports hitting her face off door frame -- does have ecchymosis to her L face/orbit but pupil equal/reactive and intact EOM CT head negative for acute CVA Shoulder Xray without acute fracture, notes OA WBC wnl on admission, UA not appearing infected. Glu 101. BUN/Cr 27/0.76. CT cervical spine noting fracture to RIGHT lamina of C6, new from prior, possibly acute. 3mm anterolisthesis of C6 on C7 new from prior and suggests post-traumatic finding. Fracture through R transverse process C7 appears chronic Xray R wrist noting acute impacted, mildly displaced intra-articular distal radius fracture with 60 degrees dorsal angulation of distal fragment --Apparently was discussed w/ ortho/orthospine on admission (Dr Porras, Dr Rich) and no need for surgical intervention and encourage C spine collar as allows and R wrist splinted #RIGHT Radial wrist fracture Noted on xray above w/ ANGULATION concerning for need for reduction to promote healing/control pain Orthopedics consult, Dr Porras, placed. s/p reduction /, placed in sugar tong splint. NWB RUE and will f/u outpatient for repeat imaging Vit D checked -- low 26.8, PO replacement provided Pain control: tylenol, norco -- > 1gm IV tylenol now and will make 1gm PO BID for baseline control Bowel regimen with senna BID PT/OT w/ mod assist x 2, rec rehab> CM notified as prefer to take home if able. Will need wheelchair/BSC/front walker. CM to discuss w/ and get back to use about possible dc vs need for short inpatient stay prior to returning home on hospice Outpt f/u orthopedics #Cervical Spine fracture Noted C6 lamina fracture, possible acute and anterolisthesis of C6 on C7 likely post-traumatic Per Dr Rich discussion w/ ER, no need for intervention Cervical collar ordered, in place. No heavy lifting. #Ambulatory Dysfunction With recurrent falls and advanced Alzheimer's dementia. Patient's concern for patient's safety while at home, interested in discussing placement options but per discussion today does want to take home and on hospice and has assistance and will monitor PT/OT consults as placed to see if hospice would cover short term. CM consult and discussed with them this evening 4/3 Suspect fall mechanical but monitor on tele Did check Mag given fall and hx migraines -- LOW 1.6, 2gm IV ordered and will monitor in AM --> improved to 1.7 and will start mag oxide. tele stable, fall precautions #Hospice status - on hospice at home, currently inpatient for pain control/tx fracture and therapy evals. goal to return home. CM as above. Additional services as able. Notable does have some chronic small vessel disease on CT head but no acute CVA but could consider baby ASA as tolerated but will avoid given hospice status PROP MAKER above #Agitation at baseline, 2nd to advanced dementia. Ativan x 1 in ER. UA not infected appearing. Frequent orientation, redirect as needed Continue Haldol qmg q6h as takes at home Pain control for above, making tylenol scheduled for baseline control DVT Proph: SCDs, can add chemoproph if remains inpatient and not dc today Dispo: TBD pending discussion w/ CM and if able to dc home w/ services and resumption hospice vs short inpatient stay. Updated bedside 12/30 Admission and Anticipated Discharge Date Admission Date: December 29, 2024 Supervising Physician Co-Signing Physician Notes The patient was not seen by me. The chart was reviewed. Case discussed with CHARLY Hidalgo. Agree with assessment and plan Subjective Eval this morning, resting. Sleepy per . Does report pain to her right wrist, needing to learn to eat w/ left hand. Tylenol 1gm IV x 1 now, discussed making this BID for baseline control and agreeable. Colar in place. +BS , nontender. reports has help at home but might need extra, would like HH therapy if able/discussion w/ CM and alerted CM for discussion to see if able to accommodate at home or if needing placement but his goal is for home. Physical Exam 2 Physical Exam: General: 79yo female laying in bed, at bedside, sleeping, mildly uncomfortable to her right wrist, splint in place, [place] colar in place HEENT:: ecchymosis to LEFT eye from prior fall, EOMI, trachea midline, mm acceptable Resp: even/unlabored, on room air CV: RRR< no significant m/r/g GI: +BS, soft/slight distension but nontender MSK/Neuro: sugartong splint to R arm, fingers, mobile, sensation intact Psych: alert to person, not place/time/event, dementia at baseline Results & Data Results & Data Vital Signs (Past 12 Hours) Vital Signs Temp Pulse Pulse Resp BP Pulse Ox O2 Del Method 12/30/24 07:36 36.8 C 74 18 162/71 H 96 Room Air 12/30/24 07:00 96 H 12/30/24 03:07 36.5 C 98 H 18 166/97 H 95 Room Air 12/30/24 02:03 Room Air 12/29/24 23:07 36.4 C L 111 H 18 160/85 H 95 Room Air 12/29/24 22:13 102 H 12/29/24 19:44 36.8 C 101 H 16 137/79 96 Room Air Laboratory Results 12/30/24 06:38 12/30/24 06:38 Mag 1.7 Vit D 26.8 PG Care Time/CCT Total # of Minutes Spent Total Time Spent with Patient: Total time spent is greater than 50% in coordination of care (as documented) at patient's floor/unit and/or counseling patient: Coding Level of Care Code 69839 SUB INP/OBS CARE 3/50MIN Diagnoses Ambulatory dysfunction R26.2 Fracture of right wrist S62.101A Encounter type: initial encounter Fracture type: closed Cervical spine fracture S12.9XXA (2) Fracture of right wrist Encounter type: initial encounter Fracture type: closed Qualified Code(s): S 62.101A - Fracture of unspecified carpal bone, right wrist, initial encounter for closed fracture
[2024-12-30 07:46] LABS: Hemoglobin 12.2 g/dl (12.0-16.0); Mean Corpuscular Hemoglobin 31.4 pg (25.0-34.0); Mean Corpuscular Hgb Conc 34.9 g/dL (32.0-36.0); Mean Corpuscular Volume 90.2 fL (80.0-100.0); Mean Platelet Volume 8.6 fL (9.4-12.4); Platelet Count 343 K/uL (130-400); RDW Coefficient of Variation 14.6 % (11.5-14.5); RDW Standard Deviation 48.6 fL (36.4-46.3); Red Blood Count 3.88 M/uL (4.20-5.40); White Blood Count 8.55 K/ul (4.8-10.8)
[2024-12-30 07:57] LABS: BUN Creatinine Ratio 33.3 (10-20); Calcium 8.6 mg/dl (8.6-10.3); Creatinine Clr Calc Pharmacy 64.3 ml/min; Magnesium 1.7 mg/dl (1.7-2.4); Potassium 3.5 mmol/L (3.5-5.1)
[2024-12-30] MEDS: MAGNESIUM OXIDE 400 MG TAB PO SCH (10:26)
[2024-12-30] MEDS: ACETAMINOPHEN 1,000 MG/100 ML VIAL IV STA (11:28)
[2024-12-30] MEDS: CHOLECALCIFEROL 10 MCG (400 UNITS) TAB PO SCH (13:07)
[2024-12-30] MEDS: ACETAMINOPHEN 500 MG TAB PO SCH (22:06)
--- NOTE | 2024-12-31 07:50 | Hospitalist Progress Note ---
Date of Service December 31, 2024 Assessment & Plan (1) Ambulatory dysfunction: (2) Fracture of right wrist: (3) Cervical spine fracture: Plan 79yo female on HOSPICE with PMHx significant for Alzheimer's dementia, seizure disorder, chronic venous insufficiency presented to ER for FALL after loosing her balance and fell injuring her RIGHT wrist Prior fall ~5 days ago w/ reports hitting her face off door frame -- does have ecchymosis to her L face/orbit but pupil equal/reactive and intact EOM CT head negative for acute CVA Shoulder Xray without acute fracture, notes OA WBC wnl on admission, UA not appearing infected. Glu 101. BUN/Cr 27/0.76. CT cervical spine noting fracture to RIGHT lamina of C6, new from prior, possibly acute. 3mm anterolisthesis of C6 on C7 new from prior and suggests post-traumatic finding. Fracture through R transverse process C7 appears chronic Xray R wrist noting acute impacted, mildly displaced intra-articular distal radius fracture with 60 degrees dorsal angulation of distal fragment --Apparently was discussed w/ ortho/orthospine on admission (Dr Porras, Dr Rich) and no need for surgical intervention and encourage C spine collar as allows and R wrist splinted #RIGHT Radial wrist fracture Noted on xray above w/ ANGULATION concerning for need for reduction to promote healing/control pain Orthopedics consult, Dr Porras, placed. s/p reduction 4/4, placed in sugar tong splint and to remain NWB RUE Will f/u outpatient for repeat imaging Vit D checked -- low 26.8, PO replacement ordered as agreeable to take Pain control: tylenol 1gm BID scheduled, [place] available and convinced to take one 4/5 -Per CM, had been giving quite regularly at home , monitor to make scheduled as needed Bowel regimen with senna BID continued. +BM 4/4 and per issues at baseline (however suspect from ijeoma norco at home which could be contributing to falls as well) PT/OT w/ mod assist x 2, initially planned home w/ and hospice but now wanting placement and plan for [facility]. to follow Outpt f/u orthopedics. Call/voicemail for #Cervical Spine fracture Noted C6 lamina fracture, possible acute and anterolisthesis of C6 on C7 likely post-traumatic Per Dr Rich discussion w/ ER, no need for intervention Cervical collar ordered, in place, as tolerated. Wearing this morning but removed for comfort this morning and resume as able. No heavy lifting. #Ambulatory Dysfunction With recurrent falls and advanced Alzheimer's dementia. Patient's concern for patient's safety while at home, interested in discussing placement options but per discussion today does want to take home and on hospice and has assistance and will monitor PT/OT consults as placed to see if hospice would cover short term. CM consult and discussed with them this evening 4/3 Suspect fall mechanical but monitor on tele, given hospice status above on admission and plans to eventually resume can downgrade as has been NSR Mag 1.6 prior and IV replacement ordered and normalized to 1.7 but started once daily PO as able to take to prevent lows given falls Fall precautions, PT/OT and SNF/PCH planned as above #Hospice status - on hospice at home, currently inpatient for pain control/tx fracture and therapy evals. 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 Ativan x 1 in ER. UA not infected appearing. Continue Haldol qmg q6h as takes at home (did decline dose last evening) Pain control for above, tylenol scheduled for baseline control with norco for breakthrough Frequent orientation, redirect as needed DVT Proph: SCDs, can add chemoproph if remains inpatient however given agitation suspect benefit to hold off at this time Dispo: plans for [place] per CM discussion w/ . continue PT/OT while inpatient for now. Updated bedside 12/30, voicemail left this morning Admission and Anticipated Discharge Date Admission Date: December 29, 2024 Supervising Physician Co-Signing Physician Notes The patient was not seen by me. The chart was reviewed. Case discussed with CHARLY Hidalgo. Agree with assessment and plan Subjective Eval this morning, resting in bed. More alert today, but skeptical to take meds, talking about bible verses at times. Reports having pain to her wrist and back, wanting to get up out of bed. Nursing reporting needs assistance with such, will contact PT to see if able to get OOB to chair. Initially not wanting to take additional medications but was able to get her to take a norco and discussed will continue tylenol for baseline. She reports "tylenol is good". Call to , voicemail left for discussion. Per CM discussion w/ him last evening, plan for [facility] for additional services but also resumption of hospice. Physical Exam 2 Physical Exam: General: 79yo female laying in bed, wanting to get up out of bed, mildly uncomfortable due to positioning in bed, pain to her buttocks/lower back and wanting to get up out of the bed, not wanting to take medications/skeptical of what we are giving her at times HEENT:: ecchymosis to LEFT eye from prior fall, EOMI, trachea midline, mm acceptable Resp: even/unlabored, on room air CV: RRR, no significant m/r/g GI: +BS, soft/less distension, nontender MSK/Neuro: sugar tong splint to R arm, fingers, mobile, sensation intact Psych: alert to person, not place/time/event, dementia at baseline Results & Data Results & Data Vital Signs (Past 12 Hours) Vital Signs Temp Pulse Pulse Resp BP Pulse Ox O2 Del Method 12/31/24 07:43 36.7 C 81 18 157/81 H 96 Room Air 12/31/24 07:00 96 H 12/31/24 03:56 36.5 C 69 18 133/70 95 Room Air 12/31/24 02:05 Room Air 12/30/24 23:26 36.5 C 94 H 18 181/86 H 96 Room Air 12/30/24 22:02 83 Laboratory Results 12/30/24 06:38 12/31/24 10:04 PG Care Time/CCT Total # of Minutes Spent Total Time Spent with Patient: Total time spent is greater than 50% in coordination of care (as documented) at patient's floor/unit and/or counseling patient: Coding Level of Care Code 49801 SUB INP/OBS CARE 2/35MIN Diagnoses Ambulatory dysfunction R26.2 Fracture of right wrist S62.101A Encounter type: initial encounter Fracture type: closed Cervical spine fracture S12.9XXA (2) Fracture of right wrist Encounter type: initial encounter Fracture type: closed Qualified Code(s): S 62.101A - Fracture of unspecified carpal bone, right wrist, initial encounter for closed fracture
[2024-12-31 10:38] LABS: BUN Creatinine Ratio 31.2 (10-20); Calcium 8.5 mg/dl (8.6-10.3); Creatinine Clr Calc Pharmacy 55.1 ml/min
--- NOTE | 2025-01-01 07:39 | Hospitalist Progress Note ---
Date of Service January 01, 2025 Assessment & Plan (1) Ambulatory dysfunction: (2) Fracture of right wrist: (3) Cervical spine fracture: Plan 79yo female on HOSPICE with PMHx significant for Alzheimer's dementia, seizure disorder, chronic venous insufficiency presented to ER for FALL after loosing her balance and fell injuring her RIGHT wrist Prior fall ~5 days ago w/ reports hitting her face off door frame -- does have ecchymosis to her L face/orbit but pupil equal/reactive and intact EOM CT head negative for CVA, microvascular changes noted. Xray shoulder w/o acute fx, notes OA. WBC wnl on admission and UA not infected. BUN slight elevation to 27, Cr 0.76. Xray R wrist w/ distal radial fracture, CT cervical spine w/ right lamina fx C6, possible acute w/ 3mm anterolisthesis of C6 on C7 new from prior and suggests post-traumatic finding. C7 transverse fx appears chronic #RIGHT Radial wrist fracture Xray R wrist noting acute impacted, mildly displaced intra-articular distal radius fracture with 60 degrees dorsal angulation of distal fragment Given concerns for healing/angulation and pain control, consult for Dr Chiquita sy from orthopedics s/p reduction 12/30, outpt f/u for repeat imaging Remains in sugar tong splint NWB RUE Vit D 26.8, PO as agreeable to take Pain control: tylenol 1gm BID, norco as needed (took 1 on 12/31, additional this morning) Bowel regimen with senna BID continued. +BM 12/30 and per issues at baseline (however suspect from ijeoma norco at home which could be contributing to falls as well) PT/OT w/ mod assist x 2, got PT to assist nursing to get OOB to chair for about 4 hours yesterday, was max assist of two bearing minimal wt during transfer initially planned home w/ and hospice but now wanting placement and plan for [facility], ?01/02. CM to follow #Cervical Spine fracture CT cervical spine as above w/ right lamina fx C6, possible acute w/ 3mm anterolisthesis of C6 on C7 new from prior and suggests post-traumatic finding. C7 transverse fx appears chronic Per Dr Rich discussion w/ ER, no need for intervention Cervical collar ordered, in place, as tolerated. No heavy lifting. #Ambulatory Dysfunction With recurrent falls and advanced Alzheimer's dementia. Initially wanting to take home back on hospice but further discussion/CM consultation and arrangement for [facility] as unable to take care of on own at this time Mag prior 1.6, IV replacement ordered and normalized but placed on once daily and remained stable on such. [facility] planned for above #Hospice status On hospice at home, currently inpatient for pain control/tx fracture and therapy evals. 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 Ativan x 1 in ER. UA not infected appearing. Continues on haldol (as above, declined last evneing but took 01/01) Pain control for above, tylenol scheduled for baseline control with norco for breakthrough and appearing BETTER today Frequent orientation, redirect as needed DVT Proph: SCDs, avoiding chemoproph given going on hospice and likely would further agitate patient Dispo: plans for [facility] per CM discussion w/ . Updated bedside 12/30, voicemail left 12/31, 01/01 Admission and Anticipated Discharge Date Admission Date: December 29, 2024 Supervising Physician Co-Signing Physician Notes The patient was not seen by me. The chart was reviewed. Case discussed with CHARLY Hidalgo. Agree with assessment and plan Subjective Eval this morning, sitting up in bed. Took her tylenol and pain medication this morning, appears much more comfortable today. COllar off as needed for comfort. Pain controlled to wrist. She reports she has Alzheimers, and "harder on us than we are on her". Support provided. Believes maybe moved bowels yesterday. Did decline her haldol yesterday but took today, decent PO intake. Call to [facility], voicemail box, left voicemail for update and will call again in AM as needed prior to dc. CM following. Plan for [facility] tomorrow. Physical Exam 2 Physical Exam: General: 79yo female sitting up in bed, alert to person/place occ, NAD and better today HEENT:: ecchymosis to LEFT eye from prior fall, EOMI, trachea midline, mm acceptable Resp: even/unlabored, on room air CV: RRR, no significant m/r/g GI: +BS, soft/less distension, nontender MSK/Neuro: sugar tong splint to R arm, fingers, mobile, sensation intact Psych: alert to person, sometimes place, not time/event, reports she knows she has dementia Results & Data Results & Data Vital Signs (Past 12 Hours) Vital Signs Temp Pulse Pulse Resp BP Pulse Ox O2 Del Method 01/01/25 07:00 63 01/01/25 03:12 Room Air 01/01/25 02:33 36.7 C 101 H 18 164/82 H 98 Room Air 12/31/24 22:38 36.8 C 77 18 189/84 H 97 Room Air 12/31/24 21:58 66 Laboratory Results 12/30/24 06:38 12/31/24 10:04 PG Care Time/CCT Total # of Minutes Spent Total Time Spent with Patient: Total time spent is greater than 50% in coordination of care (as documented) at patient's floor/unit and/or counseling patient: Coding Level of Care Code 19115 SUB INP/OBS CARE 3/50MIN Diagnoses Ambulatory dysfunction R26.2 Fracture of right wrist S62.101A Encounter type: initial encounter Fracture type: closed Cervical spine fracture S12.9XXA (2) Fracture of right wrist Encounter type: initial encounter Fracture type: closed Qualified Code(s): S 62.101A - Fracture of unspecified carpal bone, right wrist, initial encounter for closed fracture
[2025-01-01] MEDS: MELATONIN 3 MG TAB PO PRN (20:12)
--- NOTE | 2025-01-02 07:46 | Discharge Summary ---
Discharge Summary Date of Service January 02, 2025 Principal Dx & Hospital Course #1 = Principal Diagnosis (1) Ambulatory dysfunction: (2) Fracture of right wrist: (3) Cervical spine fracture: Plan 79yo on HOSPICE at home due to significant Alzhiemer's dementia, seizure disorder presented to ER after a fall with reports of loosing her balance (multiple falls at home, one ~5 days [employer]) and sustained injury to her RIGHT wrist, also noting ecchymosis to L face from prior fall but EOMI intact and pupils equal in size on exam. WBC wnl on admission and UA not appearing infected CT head negative for CVA but notes microvascular changes Xray shoulder notes OA but no acute fracture Xray R wrist w/ distal radial fracture, CT cervical spine w/ right lamina fx C6, possible acute w/ 3mm anterolisthesis of C6 on C7 new from prior and suggests post-traumatic finding. C7 transverse fx appears chronic #RIGHT Radial wrist fracture As above, Xray R wrist noting acute impacted, mildly displaced intra-articular d istal radius fracture with 60 degrees dorsal angulation of distal fragment Given concerns for healing/angulation and pain control, consulted for Dr Porras and messaged as intiially splinted by ER GIANFRANCO but continued angulation and discomfort s/p reduction with Dr Porras on 12/30 with sugar tong splint in place and repeat imaging w/ improved alignment and to continue splint at pr and remain NWB to RUE as able Vit D low, PO ordered but given hospice and requests to not continue this med have not continued this at pr Pain controlled well w/ tylenol 1gm BID and norco as needed but again req to resume prior scheduled norco and has been done w/ continue senna 2 tablets BID for constipation and did triple air valve tester her bowels but could consider decreasing norco based on pain and consider scheduled Tylenol to prevent constipation but defer to [facility] in f/u evals per family prior request to continue her prior ijeoma haldol/norco PT/OT w/ mod assist x 2, got PT to assist nursing to get OOB to chair for about 4 hours 01/01 -was max assist of two bearing minimal wt during transfer and further discussion w/ as initially wanted to take back home on hospice but too much and arrangements made for [facility] w/ resumption of hospice at pr. CM arranged for transport. Can f/u with Dr Porras at pr for repeat imaging/removal of splint based on healing in follow up. #Cervical Spine fracture CT cervical spine as above w/ right lamina fx C6, possible acute w/ 3mm anterolisthesis of C6 on C7 new from prior and suggests post-traumatic finding. C7 transverse fx appears chronic Per Dr Rich discussion w/ ER, no need for intervention. See prior note, cervical collar ordered and has been using as tolerated. Rec to avoid any heavy lifting and continue w/ walker and [facility] arranged as above to prevent repeat falls/injury and resumption of hospice services. Pain control as outlined #Ambulatory Dysfunction With recurrent falls and advanced Alzheimer's dementia. Initially wanting to take home back on hospice but further discussion/CM consultation and arrangement for [facility] as unable to take care of on own at this time Mag prior 1.6, IV replacement ordered and normalized but placed on once daily and remained stable on such and stable but NOT continue additoinal PO meds at pr #Hospice status On hospice at home, currently inpatient for pain control/tx fracture and therapy evals and arrangement for [facility] as above Continue haldol/norco at pr #Agitation - wax/waning, 2nd to adv dementia. Ativan x 1 in ER. UA not infected appearing. See above and continue haldol scheduled at pr w/ pain control, resume hospice DVT Proph: SCDs, avoided chemoproph given going on hospice and likely would further agitate patient and plan for hospice at pr as above Dispo: transportation arranged for [facility] by CM Notes For Next Care Provider consider tylenol scheduled and norco prn as able but have continued the norco scheduled as requested. suspect less constipation issues w/ decrease in opiates f/u orthopedics in 1-2 wks for repeat imaging as needed, splint in place in meantime collar to neck as tolerated, no heavy lifting recommended Does have low vit D/mag on admission but no PO meds to be continued at pr but could consider if desired. also had borderline B12 but not truly deficient Medication Changes From Visit none Admission HPI Per Admitting Provider 79-year-old female PMHx Alzheimer's dementia, seizure disorder, and chronic venous insufficiency presenting with for fall on the day prior to admission. helps provide a history. Patient's states that he witnessed her leaning and then she fell to the ground landing on her right wrist. States that this is not the first fall and that she has had a previous fall earlier in the week making that a total of 2 falls over the past week. Approximately 5 days [employer] she had a fall landing on her left side which bruised her face. She is complaining of some right shoulder pain to the . She has not had no infectious symptoms. ED evaluation reveals no leukocytosis, slightly decreased H/H at 11.7/33.8; CMP BUN 27, ratio 35.5, glucose 101; UA without infection; Cervical spine CT fracture through R lamina of C8 and 3 mm anterolisthesis of C6 on C7, fracture through right transverse process of C7; head CT with no acute findings; shoulder x-ray with no acute findings; wrist x- ray with acute impacted mildly displaced intra-articular distal radius fracture with 60 degree angulation (dorsal) of distal fragment. Please see Dr. Garcia's attestation for adjustments/additions to treatment plan. Admission Exam Per Admitting Provider General: No acute distress Skin: Warm and dry Head: Normocephalic, atraumatic Eyes: PERRL, conjunctivae clear, sclera non-icteric ENT: External ear and ear canal without swelling; nose atraumatic; good dentition, tongue normal appearance, pharynx normal Neck: Supple, no LAD Cardio: RRR, no M/G/R, S1 and S2 normal Resp: No respiratory distress, Lungs CTA in all lobes bilaterally, no wheezes, rales, or rhonchi Abdomen: Soft, symmetric, nontender; No masses or hepatosplenomegaly; Bowel sounds normoactive MSK: No deformities; pulses palpable and equal; no edema. Neuro: Awake, alert; Sensation intact bilaterally; CN grossly intact Psych: Appropriate mood and affect; good judgement and insight. Discharge Exam General: 79yo female sitting up in bed, alert to person/place occ, NAD and better today HEENT:: ecchymosis to LEFT eye from prior fall, EOMI, trachea midline, mm acceptable Resp: even/unlabored, on room air CV: RRR, no significant m/r/g GI: +BS, soft/less distension, nontender MSK/Neuro: sugar tong splint to R arm, fingers, mobile, sensation intact Psych: alert to person, sometimes place, not time/event, reports she knows she has dementia Discharge Plan Discharge Items Patient Disposition: Hospice - Home Reason For Visit: AMBULATORY DYS., FALLS, C SPINE FX Discharge Diagnosis: Fall, right wrist fracture, cervical fracture Condition on Discharge: Good Goals: You have been hospitalized for an acute medical problem. During your stay at [facility], we have made an effort to correct the problem that brought you to the hospital while keeping you as comfortable as possible. Medications were used to bring your condition under control and your discharge instructions will include directions for any medications you should take after leaving the hospital. Please make sure you see your Primary Care Provider as part of your follow up plan. Activity: As commented below Activity Comment: non weight bearing RIGHT upper extremity, should be using walker Non-emergency contact: Primary Care Provider Call non-emergency contact if: you have any medication questions, your symptoms worsen, your pain is not controlled, your pain is concerning for you and you have a fever Follow-up/Referrals: Carolyn Pemberton DO [Primary Care Provider] - Humberto Porras DO [Surgeon] - (2 weeks) Diet: Regular Addtl Attending Provider Instructions: You have been hospitalized after a fall and found to have fractured your right wrist and fractures in your upper neck. Orthopedics/orthopedic spine saw you while in the hospital and Dr Porras "reduced" your fracture back into better alignment and should remain in the splint and follow up in 2 weeks for repeat imaging. You should continue the cervical colar as tolerated and as discussed NO HEAVY LIFTING. Continue norco every 4-6 hours for pain. Can discuss with oncoming provider about tylenol twice daily with norco as needed as giving in the hospital but the wishes by family at discharge are to continue prior regimen and will continue on the norco as getting before. You did have a low vitamin D level and have been started on low dose vitamin D but has been stopped as going on hospice however can resume if decides/agreeable to take. Similarly your magnesium was low and given replacement with improvement but could consider taking daily as well as low levels can lead to arrhythmia and you didn't have evidence for this but could be helpful to prevent falls. Please follow up with primary care in the next week to monitor your progress. Return for any symptoms concerning for you. It has been a pleasure being a part of the medical team providing for you while you have been in the hospital. Take care! Pending Studies at Discharge: No Stand-Alone Forms: My [facility] Medications and DC Order Prescriptions: Continued CBD oil 1 dose PO DIRECTED PRN (Reason: NEEDED) Abh Gel 1 dose PO Q4H PRN (Reason: RESTLESSNESS/AGITATION) sennosides [senna] 8.6 mg tablet 17.2 mg PO BID hydrocodone-acetaminophen 5-325 mg tablet 1 tab PO Q4H PRN (Reason: Pain) haloperidol lactate 2 mg/mL concentrate 1 mg Q6 Discharge Orders: Discharge Order (Routine); Ordered 01/02/25 Ordered By: Pearl Zamora Admission Data Admit Date/Time: 12/29/24 01:15 Attending Provider: Chencho Moore Admit Provider: Jamal Garcia Primary Care Provider: Carolyn Pemberton Other Providers: Humberto Porras; [facility]; Jamal Garcia. Other Interventions: Discharge Summary Assessment (RN) Last Done: 01/02/25 08:00 Hospital Stay Data Consultations 12/29/24 00:42 ED Decision to Admit Stat 12/29/24 09:10 Consult Orthopedic Surgery Routine Diagnostic Imagining Performed Cervical Spine CT 12/28/24 19:54 Exam(s): CT C SPINE EXAM: CT Cervical Spine Without Intravenous Contrast CLINICAL HISTORY: Reason for exam: head injury. TECHNIQUE: Axial computed tomography images of the cervical spine without intravenous contrast. CTDI is 25.68 mGy and DLP is 459.38 mGy-cm. Automated exposure control was utilized for the study. A dose lowering technique was utilized adhering to the principles of ALARA. COMPARISON: 05/27/23 FINDINGS: Vertebrae: Osteopenia. Fracture through the right lamina of C6 (sagittal 44), new from prior. There is 3 mm anterolisthesis of C6 on C7 which is new from prior exam and may reflect an acute posttraumatic finding. Stable chronic fracture through the left lamina of C5. Fracture through the right transverse process of C7 (coronal 68) which is new from prior but chronic in appearance. No additional fractures. Discs/spinal canal/neural foramina: Advanced degeneration at the atlantodental joint. Mild disc degeneration at multiple cervical levels. Multilevel bilateral facet joint degeneration. Mid and lower cervical uncovertebral joint degeneration. No significant central spinal canal stenosis. Soft tissues: Unremarkable. IMPRESSION: Fracture through the right lamina of C6 (sagittal 44), new from prior and possibly acute. There is 3 mm anterolisthesis of C6 on C7 which is new from prior exam and suggests a posttraumatic finding. Fracture through the right transverse process of C7, new from prior but chronic in appearance. Electronically signed by: Mila Benavides M.D. 12/28/24 22:[address] 12/28/24 19:54 Exam(s): CT HEAD Without Contrast EXAM: CT Head Without Intravenous Contrast CLINICAL HISTORY: Reason for exam: head injury. TECHNIQUE: Axial computed tomography images of the head/brain without intravenous contrast. CTDI is 39.02 mGy and DLP is 624.41 mGy-cm. Automated exposure control was utilized for the study. A dose lowering technique was utilized adhering to the principles of ALARA. COMPARISON: 06/05/24 FINDINGS: Brain: Age-related parenchymal volume loss. Mild to moderate chronic small vessel ischemic change. Landeros-white matter differentiation maintained. No hemorrhage, mass effect, parenchymal edema, or midline shift. Ventricles: No hydrocephalus. Bones/joints: No acute fracture. Soft tissues: Unremarkable. Vasculature: Intracranial atherosclerosis. Sinuses: Unremarkable as visualized. Mastoid air cells: No significant mastoid effusion. IMPRESSION: No acute intracranial process. Electronically signed by: Mila Benavides M.D. 12/28/24 22:47 PM Shoulder X-Ray 12/28/24 19:54 Exam(s): XR SHOULDER, 2+ views EXAM: XR Right Shoulder Complete, 2 or More Views CLINICAL HISTORY: Reason for exam: right shoulder injury. TECHNIQUE: Two or more views of the right shoulder. COMPARISON: No relevant prior studies available. FINDINGS: Bones/joints: Mild osteoarthritis of the acromioclavicular joint. No acute fracture or dislocation. Multiple old right rib fractures. Spondylosis in the thoracic spine. Soft tissues: Unremarkable. IMPRESSION: No acute findings in the right shoulder. Electronically signed by: Mila Benavides M.D. 12/28/24 22:46 PM Wrist X-Ray 12/28/24 19:54 Exam(s): XR RIGHT WRIST, 3+ views EXAM: XR Right Wrist Complete, 3 or More Views CLINICAL HISTORY: Reason for exam: right wrist injury. TECHNIQUE: Frontal, lateral and oblique views of the right wrist. COMPARISON: No relevant prior studies available. FINDINGS: Bones/joints: Acute impacted, mildly displaced intra-articular distal radius fracture with 60° dorsal angulation of the distal fragment. No visible ulnar fracture. No dislocation. Soft tissues: Soft tissue swelling. No radiopaque foreign body. IMPRESSION: Acute impacted, mildly displaced intra-articular distal radius fracture with 60° dorsal angulation of the distal fragment. Electronically signed by: Mila Benavides M.D. 12/28/24 22:28 PM Wrist X-Ray 12/29/24 00:00 XR wrist RT 2V CLINICAL HISTORY: POST REDUCT RIGHT WRIST COMPARISON: 12/29/2024 and 12/28/2024 FINDINGS: 4 views of the right wrist in an immobilization device demonstrate diminished impaction and reduced dorsal angulation of a comminuted Colles' fracture of the distal right radius. The 60 degrees of dorsal angulation has been reduced to approximately 30 to 40 degrees. The radial styloid is somewhat offset laterally. The small ulnar styloid avulsion is noted. IMPRESSION: Improvement with residual deformity noted. ACT 112: Negative or not required by law. Electronically signed by: Hillary Woodward M.D. 12/29/2024 3:28 PM Wrist X-Ray 12/29/24 13:38 XR wrist RT 2V CLINICAL HISTORY: post reduction COMPARISON: 12/28/2024 FINDINGS: 3 views of the right wrist in an immobilization device demonstrate no significant interval change since the prereduction images of 12/28/2024. There is persistent impaction, comminution, and approximately 60 degrees of dorsal angulation of the distal radial fracture. IMPRESSION: No significant reduction in the displaced distal radial fracture is identified. ACT 112: Negative or not required by law. Electronically signed by: Hillary Woodward M.D. 12/29/2024 1:56 PM Wrist X-Ray 12/29/24 14:18 FL wrist RT 2V CLINICAL HISTORY: POST REDUCTION COMPARISON STUDY: Earlier the same date FLUOROSCOPY TIME: 7 seconds FLUOROSCOPY IMAGES: 2 EXPOSURE DOSE: 0.2 mGy FINDINGS: Fluoroscopic guidance was provided for displaced fracture reduction in the distal right radius. 2 C-arm spot images are of relatively poor quality but they do suggest a significant reduction in the impaction and dorsal angulation. IMPRESSION: Please refer to procedural report for evaluation based upon real- time fluoroscopic observation. ACT 112: Negative or not required by law. Electronically signed by: Hillary Woodward M.D. 12/29/2024 2:59 PM Pending Results Patient Have Any Pending Studies at Discharge: No Discharge Instructions Given to Patient (Per Discharging Provider) You have been hospitalized after a fall and found to have fractured your right wrist and fractures in your upper neck. Orthopedics/orthopedic spine saw you while in the hospital and Dr Porras "reduced" your fracture back into better alignment and should remain in the splint and follow up in 2 weeks for repeat imaging. You should continue the cervical colar as tolerated and as discussed NO HEAVY LIFTING. Continue norco every 4-6 hours for pain. Can discuss with oncoming provider about tylenol twice daily with norco as needed as giving in the hospital but the wishes by family at discharge are to continue prior regimen and will continue on the norco as getting before. You did have a low vitamin D level and have been started on low dose vitamin D but has been stopped as going on hospice however can resume if decides/agreeable to take. Similarly your magnesium was low and given replacement with improvement but could consider taking daily as well as low levels can lead to arrhythmia and you didn't have evidence for this but could be helpful to prevent falls. Please follow up with primary care in the next week to monitor your progress. Return for any symptoms concerning for you. It has been a pleasure being a part of the medical team providing for you while you have been in the hospital. Take care! Total Time Total Time Spent Total Time Spent (In Minutes): 40 Coding Level of Care Code 93567 INP/OBS DISCH >30 MIN Diagnoses Ambulatory dysfunction R26.2 Fracture of right wrist S62.101A Encounter type: initial encounter Fracture type: closed Cervical spine fracture S12.9XXA
[2025-01-02 07:57] VITALS: BP 159/81; PULSE 93; RESP 20; TEMP 97.5; O2SAT 94
== END 2025-01-02 11:16 | disposition hospice, home (50) ==
LOC: ED 18:44 → SUATTDRO 12-29 01:15 → EDINP 12-29 01:15 → INTOOBSV 12-29 01:15 → 2N 12-29 01:41